=== PATIENT | female | born 1955 | race Caucasian/White ===

== ENCOUNTER → 2017-03-10 | Outpatient (CLI) | payer BC, OTHER ==
--- NOTE | 2017-03-11 13:38 | MM ---
Reason for exam: screening (asymptomatic). Last mammogram was performed 1 year ago. History: Patient is postmenopausal and had first child at age 30. Physical Findings: A clinical breast exam by your physician is recommended on an annual basis and results should be correlated with mammographic findings. MG 3D Screening Mammo W/Cad Bilateral CC and MLO view(s) were taken. XCCL view(s) were taken of the right breast. Prior study comparison: February 27, 2016, bilateral MG 3d screening mammo w/cad. January 24, 2015, bilateral MG screening mammo w CAD. The breast tissue is heterogeneously dense. This may lower the sensitivity of mammography. Benign calcifications. There is no discrete abnormality. No significant changes when compared with prior studies. ASSESSMENT: Benign, BI-RAD 2 RECOMMENDATION: Routine screening mammogram of both breasts in 1 year.
== END | disposition home or self-care (01) ==
LOC: RADMAMWWP 14:36
PROVIDERS: ATTEND Internal Medicine
DX: Z12.31 Encounter for screening mammogram for malignant neoplasm of breast (principal)
CPT/HCPCS: 77063; G0202

== ENCOUNTER → 2018-04-12 | Outpatient (CLI) | payer BC, OTHER ==
--- NOTE | 2018-04-14 09:40 | MM ---
Reason for exam: screening (asymptomatic). Last mammogram was performed 1 year and 1 month ago. History: Patient is postmenopausal and had first child at age 30. Physical Findings: A clinical breast exam by your physician is recommended on an annual basis and results should be correlated with mammographic findings. MG 3D Screening Mammo W/Cad Bilateral CC and MLO view(s) were taken. XCCL view(s) were taken of the right breast. Prior study comparison: March 10, 2017, bilateral MG 3d screening mammo w/cad. February 27, 2016, bilateral MG 3d screening mammo w/cad. The breast tissue is heterogeneously dense. This may lower the sensitivity of mammography. Benign appearing bilateral calcifications. No suspicious abnormality. No significant changes when compared with prior studies. ASSESSMENT: Benign, BI-RAD 2 RECOMMENDATION: Routine screening mammogram of both breasts in 1 year.
== END | disposition home or self-care (01) ==
LOC: RADMAMWWP 10:05
PROVIDERS: ATTEND Internal Medicine
DX: Z12.31 Encounter for screening mammogram for malignant neoplasm of breast (principal)
CPT/HCPCS: 77063; 77067

== ENCOUNTER → 2018-06-01 | Outpatient (CLI) | payer BC, OTHER ==
--- NOTE | 2018-06-01 10:18 | XR ---
Left foot HISTORY: Left foot pain 3 views of the left foot Degenerative changes are mild at the first metatarsophalangeal joint. There is soft tissue swelling p resent. Bone mineralization is somewhat reduced. Alignment is maintained. There is a lucency through the proximal aspect of the proximal phalanx of the fourth digit of the lef t foot compatible with nondisplaced fracture, correlate for tenderness. No dislocation is evident. Th ere is a plantar calcaneal spur. Arthropathy present at the intertarsal joints. IMPRESSION: Fourth digit fracture.
== END | disposition home or self-care (01) ==
LOC: RADXRMAIN 09:45
PROVIDERS: ATTEND Podiatrist Foot Surgery
DX: S92.345A Nondisplaced fracture of fourth metatarsal bone, left foot, initial encounter for closed fracture (principal)

== ENCOUNTER 2018-08-16 06:55 | Emergency (ER) | payer BC, OTHER ==
[2018-08-16 07:03] VITALS: TEMP 98.6
[2018-08-16] MEDS ORDERED: SODIUM CHLORIDE 0.9% 1,000 ML IV STA (07:15)
--- NOTE | 2018-08-16 07:19 | ED ---
General Adult HPI - General Chief complaint: Recheck/Abnormal Lab/Rx Stated complaint: Rapid Heart Rate Time Seen by Provider: 08/16/18 07:05 Source: patient, RN notes reviewed Mode of arrival: ambulatory Limitations: no limitations - History of Present Illness Initial comments: This a 63-year-old female sent emergency Department chief complaint of feeling of her heart racing. Patient states that around 9:00 PM last night she noticed that she felt like her heart was racing really fast and she noticed it was skipping beats. She states that she never checked her heart rate. Patient does admit that she is being treated for a breast infection with Ceftin which was prescribed by PCP. Patient also has noticed since Wednesday that she has some dysuria and is concerned about urinary tract infection. Patient developed a rash which was improving with [place]. She is a known diabetic. Patient states she took her blood pressure medication which includes metoprolol this morning. Patient reports no fever, chills, night sweats. Patient states that she does see her primary care physician every 3 months has had no prior thyroid disease. Patient states proximal to 20 years ago she came in for some chest discomfort and which she had a complete workup and was found have no acute findings other than diagnosed with anxiety. Patient states that she has no current chest pain or shortness of breath. She states that her heart rate does not feel like it skipping a beat at this time. Denies any nausea, vomiting, diarrhea constipation no flank pain no back pain. Patient states that she tried taking Ativan last night and did not help her heart rate. - Related Data Home Medications Medication Instructions Recorded Confirmed Allopurinol [Zyloprim] 300 mg PO DAILY 01/04/15 01/08/15 Aspirin 81 mg PO DAILY 01/04/15 01/08/15 Furosemide [Lasix] 20 mg PO DAILY 01/04/15 01/08/15 LORazepam [Ativan] 1 mg PO BID PRN 01/04/15 01/08/15 Metoprolol Succinate (ER) [Toprol 25 mg PO HS 01/04/15 01/08/15 Xl] Metoprolol Succinate [Toprol XL] 50 mg PO DAILY 01/04/15 01/08/15 Potassium Chloride [Klor-Con 10] 10 meq PO DAILY 01/04/15 01/08/15 Simvastatin [Zocor] 20 mg PO HS 01/04/15 01/08/15 amLODIPine BESYLATE/BENAZEPRIL 1 each PO DAILY 01/04/15 01/08/15 [Lotrel 5-20 mg Capsule] metFORMIN HCL [Glucophage] 500 mg PO BID 01/04/15 01/08/15 Previous Rx's Medication Instructions Recorded Hydrocodone/Acetaminophen [[place] 1 each PO Q6HR PRN #40 tab 01/08/15 5-325] Fluconazole [Diflucan] 150 mg PO ONCE #2 tab 08/16/18 Nystatin 100,000Unit/gm Cream 1 applic TOPICAL BID #30 gram 08/16/18 [Mycostatin Cream] Allergies Allergy/AdvReac Type Severity Reaction Status Date / Time No Known Allergies Allergy Verified 08/16/18 07:03 Review of Systems ROS Statement: Those systems with pertinent positive or pertinent negative responses have been documented in the HPI. ROS Other: All systems not noted in ROS Statement are negative. Past Medical History Past Medical History: Diabetes Mellitus, Hyperlipidemia, Hypertension, Osteoarthritis (OA) Additional Past Medical History / Comment(s): hx. kidney stones, resolving cold sx., hx. gout History of Any Multi-Drug Resistant Organisms: None Reported Past Surgical History: Section, Hysterectomy, Orthopedic Surgery Additional Past Surgical History / Comment(s): lithotripsy Past Anesthesia/Blood Transfusion Reactions: Postoperative Nausea & Vomiting ( PONV) Past Psychological History: Anxiety Smoking Status: Former smoker Past Alcohol Use History: None Reported Past Drug Use History: None Reported - Past Family History Mother Family Medical History: Cancer General Exam Limitations: no limitations General appearance: alert, in no apparent distress Head exam: Present: atraumatic, normocephalic, normal inspection ENT exam: Present: normal exam, normal oropharynx, mucous membranes moist Neck exam: Present: normal inspection, full ROM. Absent: tenderness, meningismus, lymphadenopathy Respiratory exam: Present: normal lung sounds bilaterally. Absent: respiratory distress, wheezes, rales, rhonchi, stridor Cardiovascular Exam: Present: normal rhythm, tachycardia (102), normal heart sounds. Absent: regular rate, systolic murmur, diastolic murmur, rubs, gallop, clicks GI/Abdominal exam: Present: soft, normal bowel sounds. Absent: distended, tenderness, guarding, rebound, rigid Back exam: Absent: CVA tenderness (R), CVA tenderness (L) Neurological exam: Present: alert, oriented X3, CN II-XII intact Skin exam: Present: warm, dry, intact, normal color. Absent: rash Course Vital Signs 08/16/18 08/16/18 08/16/18 06:58 07:38 07:40 Temperature 98.6 F Pulse Rate 102 H 80 Respiratory 18 33 H 7 L Rate Blood Pressure 170/80 O2 Sat by Pulse 98 93 L Oximetry 08/16/18 08/16/18 08/16/18 07:50 08:00 08:10 Temperature Pulse Rate 76 76 73 Respiratory 17 27 H 16 Rate Blood Pressure 134/69 134/69 120/80 O2 Sat by Pulse 93 L 94 L 94 L Oximetry 08/16/18 08/16/18 08/16/18 08:20 08:30 08:40 Temperature Pulse Rate 75 71 74 Respiratory 14 17 12 Rate Blood Pressure 120/80 120/80 117/76 O2 Sat by Pulse 96 94 L 94 L Oximetry 08/16/18 08/16/18 08:50 09:00 Temperature Pulse Rate 75 Respiratory 15 Rate Blood Pressure 117/76 117/76 O2 Sat by Pulse 95 Oximetry Medical Decision Making - Medical Decision Making 63-year-old female presents emergency department for palpitations. Patient had lab work, EKG, chest x-ray and urinalysis which is essentially unremarkable she does have mild elevated renal function related to her diabetes and mild dehydration. Patient was hydrated with a liter fluid she does feel improved. Patient states she has no current symptoms denies any chest pain or shortness of breath. Patient does have a yeast infection will be given Diflucan, nystatin cream. Patient will follow-up with her PCP and return for any worsening symptoms. We discussed possibility of having a Holter monitor or event monitor if symptoms return or persist. Return parameters were discussed. - Lab Data Result diagrams: 08/16/18 07:45 08/16/18 07:45 Lab Results 08/16/18 08/16/18 08/16/18 Range/Units 07:45 07:45 07:45 WBC 10.0 (3.8-10.6) k/uL RBC 3.93 (3.80-5.40) m/uL Hgb 11.8 (11.4-16.0) gm/dL Hct 36.2 (34.0-46.0) % MCV 92.2 D (80.0-100.0) fL MCH 29.9 (25.0-35.0) pg MCHC 32.5 (31.0-37.0) g/dL RDW 14.3 (11.5-15.5) % Plt Count 303 (150-450) k/uL Neutrophils % 79 % Lymphocytes % 12 % Monocytes % 5 % Eosinophils % 3 % Basophils % 0 % Neutrophils # 7.9 H (1.3-7.7) k/uL Lymphocytes # 1.2 (1.0-4.8) k/uL Monocytes # 0.5 (0-1.0) k/uL Eosinophils # 0.3 (0-0.7) k/uL Basophils # 0.0 (0-0.2) k/uL PT (9.0-12.0) sec INR (<1.2) APTT (22.0-30.0) sec Sodium 138 (137-145) mmol/L Potassium 4.6 (3.5-5.1) mmol/L Chloride 108 H (98-107) mmol/L Carbon Dioxide 21 L (22-30) mmol/L Anion Gap 9 mmol/L BUN 32 H (7-17) mg/dL Creatinine 1.22 H (0.52-1.04) mg/dL Est GFR (CKD-EPI)AfAm 54 (>60 ml/min/1.73 sqM) Est GFR (CKD-EPI)NonAf 47 (>60 ml/min/1.73 sqM) Glucose 171 H (74-99) mg/dL Calcium 10.0 (8.4-10.2) mg/dL Magnesium 1.7 (1.6-2.3) mg/dL Total Bilirubin 0.3 (0.2-1.3) mg/dL AST 19 (14-36) U/L ALT 29 (9-52) U/L Alkaline Phosphatase 88 (38-126) U/L Total Creatine Kinase 59 (30-135) U/L CK-MB (CK-2) 0.7 (0.0-2.4) ng/mL CK-MB (CK-2) Rel Index 1.2 Troponin I <0.012 (0.000-0.034) ng/mL Total Protein 6.7 (6.3-8.2) g/dL Albumin 3.8 (3.5-5.0) g/dL TSH 1.910 (0.465-4.680) mIU/L Urine Color Urine Appearance (Clear) Urine pH (5.0-8.0) Ur Specific [place] (1.001-1.035) Urine Protein (Negative) Urine Glucose (UA) (Negative) Urine Ketones (Negative) Urine Blood (Negative) Urine Nitrite (Negative) Urine Bilirubin (Negative) Urine Urobilinogen (<2.0) mg/dL Ur Leukocyte Esterase (Negative) Urine RBC (0-5) /hpf Urine WBC (0-5) /hpf Ur Squamous Epith Cells (0-4) /hpf Urine Bacteria (None) /hpf Hyaline Casts (0-2) /lpf Urine Mucus (None) /hpf 08/16/18 08/16/18 Range/Units 07:45 07:45 WBC (3.8-10.6) k/uL RBC (3.80-5.40) m/uL Hgb (11.4-16.0) gm/dL Hct (34.0-46.0) % MCV (80.0-100.0) fL MCH (25.0-35.0) pg MCHC (31.0-37.0) g/dL RDW (11.5-15.5) % Plt Count (150-450) k/uL Neutrophils % % Lymphocytes % % Monocytes % % Eosinophils % % Basophils % % Neutrophils # (1.3-7.7) k/uL Lymphocytes # (1.0-4.8) k/uL Monocytes # (0-1.0) k/uL Eosinophils # (0-0.7) k/uL Basophils # (0-0.2) k/uL PT 9.7 (9.0-12.0) sec INR 1.0 (<1.2) APTT 23.1 (22.0-30.0) sec Sodium (137-145) mmol/L Potassium (3.5-5.1) mmol/L Chloride (98-107) mmol/L Carbon Dioxide (22-30) mmol/L Anion Gap mmol/L BUN (7-17) mg/dL Creatinine (0.52-1.04) mg/dL Est GFR (CKD-EPI)AfAm (>60 ml/min/1.73 sqM) Est GFR (CKD-EPI)NonAf (>60 ml/min/1.73 sqM) Glucose (74-99) mg/dL Calcium (8.4-10.2) mg/dL Magnesium (1.6-2.3) mg/dL Total Bilirubin (0.2-1.3) mg/dL AST (14-36) U/L ALT (9-52) U/L Alkaline Phosphatase (38-126) U/L Total Creatine Kinase (30-135) U/L CK-MB (CK-2) (0.0-2.4) ng/mL CK-MB (CK-2) Rel Index Troponin I (0.000-0.034) ng/mL Total Protein (6.3-8.2) g/dL Albumin (3.5-5.0) g/dL TSH (0.465-4.680) mIU/L Urine Color Light Yellow Urine Appearance Cloudy H (Clear) Urine pH 5.0 (5.0-8.0) Ur Specific [place] 1.008 (1.001-1.035) Urine Protein Trace H (Negative) Urine Glucose (UA) Negative (Negative) Urine Ketones Negative (Negative) Urine Blood Negative (Negative) Urine Nitrite Negative (Negative) Urine Bilirubin Negative (Negative) Urine Urobilinogen <2.0 (<2.0) mg/dL Ur Leukocyte Esterase Small H (Negative) Urine RBC 3 (0-5) /hpf Urine WBC 5 (0-5) /hpf Ur Squamous Epith Cells 6 H (0-4) /hpf Urine Bacteria Rare H (None) /hpf Hyaline Casts 4 H (0-2) /lpf Urine Mucus Rare H (None) /hpf Disposition Clinical Impression: Palpitations, Skin yeast infection, Dehydration Disposition: HOME SELF-CARE Condition: Stable Instructions: Heart Palpitations (ED) Additional Instructions: Please return to the Emergency Department if symptoms worsen or any other concerns. Prescriptions: Fluconazole [Diflucan] 150 mg PO ONCE #2 tab Nystatin 100,000Unit/gm Cream [Mycostatin Cream] 1 applic TOPICAL BID #30 gram Is patient prescribed a controlled substance at d/c from ED?: No Referrals: Dorie Rivera MD [Primary Care Provider] - 1-2 days Time of Disposition: :19
[2018-08-16 08:12] LABS: Basophils % (A) 0 %; Eosinophils # (A) 0.3 k/uL (0-0.7); Eosinophils % (A) 3 %; HCT 36.2 % (34.0-46.0); HGB 11.8 gm/dL (11.4-16.0); Lymphocytes # (A) 1.2 k/uL (1.0-4.8); Lymphocytes % (A) 12 %; MCH 29.9 pg (25.0-35.0); MCHC 32.5 g/dL (31.0-37.0); Mean Platelet Volume 7.4; Monocytes # (A) 0.5 k/uL (0-1.0); Monocytes % (A) 5 %; Neutrophils # (A) 7.9 k/uL (1.3-7.7); Neutrophils % (A) 79 %; Platelet Count 303 k/uL (150-450); RBC 3.93 m/uL (3.80-5.40); RDW 14.3 % (11.5-15.5)
[2018-08-16 08:17] LABS: Appearance,Urine Cloudy (Clear); Bacteria,Urine Rare /hpf; Bilirubin,Urine Negative (Negative); Blood,Urine Negative (Negative); Color,Urine Light Yellow; Glucose,Urine (UA) Negative (Negative); Hyaline Casts,Urine 4 /lpf (0-2); Ketones,Urine Negative (Negative); Leukocyte Esterase,Urine Small (Negative); MCV 92.2 fL (80.0-100.0); Mucus,Urine Rare /hpf; Nitrite,Urine Negative (Negative); Protein,Urine Trace (Negative); RBC,Urine 3 /hpf (0-5); Specific Gravity,Urine 1.008 (1.001-1.035); Squamous Epithelial Cell,Urine 6 /hpf (0-4); Urobilinogen,Urine <2.0 mg/dL (<2.0); WBC,Urine 5 /hpf (0-5)
--- NOTE | 2018-08-16 08:21 | XR ---
EXAMINATION TYPE: XR chest 2V DATE OF EXAM: 08/16/2018 COMPARISON: None INDICATION: Rapid heart rate TECHNIQUE: Frontal and lateral views of the chest are obtained. FINDINGS: The heart size is normal. The pulmonary vasculature is normal. The lungs are clear. IMPRESSION: 1. No acute pulmonary process.
[2018-08-16 08:24] LABS: Albumin 3.8 g/dL (3.5-5.0); Magnesium 1.7 mg/dL (1.6-2.3); Partial Thromboplastin Time 23.1 sec (22.0-30.0); Potassium 4.6 mmol/L (3.5-5.1); Prothrombin Time 9.7 sec (9.0-12.0); Total Bilirubin 0.3 mg/dL (0.2-1.3); Total Protein 6.7 g/dL (6.3-8.2)
[2018-08-16 08:29] LABS: Creatine Kinase 59 U/L (30-135)
[2018-08-16 08:42] LABS: Creatine Kinase MB 0.7 ng/mL (0.0-2.4); Troponin I <0.012 ng/mL (0.000-0.034)
[2018-08-16 09:52] VITALS: BP 112/72; PULSE 71; RESP 18
== END 2018-08-16 09:50 | disposition home or self-care (01) ==
LOC: EC 06:55
DX: R00.2 Palpitations (principal); B37.2 Candidiasis of skin and nail; E86.0 Dehydration; R30.0 Dysuria; E11.9 Type 2 diabetes mellitus without complications; E78.5 Hyperlipidemia, unspecified; I10 Essential (primary) hypertension; M19.90 Unspecified osteoarthritis, unspecified site; M10.9 Gout, unspecified; F41.9 Anxiety disorder, unspecified; Z87.442 Personal history of urinary calculi; Z87.891 Personal history of nicotine dependence; Z79.82 Long term (current) use of aspirin; Z79.84 Long term (current) use of oral hypoglycemic drugs; Z79.899 Other long term (current) drug therapy; Z90.710 Acquired absence of both cervix and uterus
CPT/HCPCS: 36415; 71046; 80053; 81001; 82550; 82553; 83735; 84443; 84484; 85025; 85610; 85730; 93005; 96360; 96361; 99285

== ENCOUNTER → 2019-04-06 | Outpatient (CLI) | payer MEDICARE, OTHER ==
--- NOTE | 2019-04-06 09:53 | USB ---
Reason for exam: clinical finding. History: Patient is postmenopausal and had first child at age 30. Physical Findings: Nurse Summary: 3cm bruise with BB 1cm (nurse kp). US Breast RT Right complete breast ultrasound includes all four quadrants, the retroareolar region and axilla. Finding demonstrates a 3 x 3 x 3mm lesion at 2 o'clock, appears anechoic, however, ill defined boarders, reassess at time of biopsy and a 6 x 5 x 11mm cystic lesion at 10 o'clock BB with hyperechoic rim and palpable. These results were verbally communicated with the patient and result sheet given to the patient on 04/06/19. ASSESSMENT: Suspicious, BI-RAD 4 RECOMMENDATION: Ultrasound core biopsy of the right breast. (x 2 site) Called Dr. Rivera with mammographic findings and has scheduled an appointment for the patient for 05/31/19 at 4:[address] Dyson. Biopsy scheduled for 05/02/19 at 2:00. PRELIMINARY REPORT CALLED AND FAXED TO DR. DYSON ON 04/06/19.
== END | disposition home or self-care (01) ==
LOC: RADUSWWP 08:06
PROVIDERS: ATTEND Internal Medicine
DX: S20 Superficial injury of thorax (principal)

== ENCOUNTER → 2019-04-21 | Outpatient (CLI) | payer MEDICARE, OTHER ==
--- NOTE | 2019-04-21 11:42 | MM ---
Reason for exam: additional evaluation requested from prior study. Last mammogram was performed 1 year ago. History: Patient is postmenopausal and had first child at age 30. Physical Findings: Nurse did not find any significant physical abnormalities on exam. MG 3D Diag Mammo W/Cad DEVIN Bilateral CC and MLO view(s) were taken. Prior study comparison: April 12, 2018, bilateral MG 3d screening mammo w/cad. March 10, 2017, bilateral MG 3d screening mammo w/cad. There are scattered fibroglandular densities. There is no discrete abnormality including area of concern. These results were verbally communicated with the patient and result sheet given to the patient on 04/21/19. ASSESSMENT: Benign, BI-RAD 2 RECOMMENDATION: Ultrasound core biopsy of the right breast. (per ultrasound of 04/06/19, biopsy scheduled for 05/02/19)
== END | disposition home or self-care (01) ==
LOC: RADMAMWWP 10:43
PROVIDERS: ATTEND Internal Medicine
DX: R92.8 Other abnormal and inconclusive findings on diagnostic imaging of breast (principal)
CPT/HCPCS: 77066; G0279; 77062

== ENCOUNTER → 2019-05-02 | Day surgery (SDC) | payer MEDICARE, OTHER ==
[2019-05-02 13:15] VITALS: BP 128/76; PULSE 78; RESP 16; TEMP 97.8; BMI 41.1
--- NOTE | 2019-05-02 18:56 | USB ---
EXAMINATION TYPE: US discontinued breast bx RT DATE OF EXAM: 05/02/2019 COMPARISON: 04/06/2019 HISTORY: 64-year-old female referred for tube site ultrasound core needle biopsy. TECHNIQUE: Initial ultrasound evaluation of the intended right breast biopsy targets, 10:00 and 2:00 FINDINGS: At the intended 10:00 biopsy target, 6 cm from the nipple, there is residual 7 mm area of echogenicit y at the previous site of larger 1.1 cm mixed echogenic and cystic lesion. Of note, this is previousl y a palpable area that demonstrated overlying bruising. Given decreasing size and echogenicity, invol uting hematoma is suspected. Three-month follow-up recommended. At the intended 2:00 zone a biopsy target, there appears to be a slightly irregular cyst measuring 5 x 3 x 3 mm. Given overall cystic appearance, biopsy is deferred at this time in the area of the reass essed in 3 months. A third lesion now incidentally seen located at 10:00, zone A, is an 8 x 8 x 4 mm complex cyst versus cyst cluster. This can also be reassessed at follow-up. Cyst cluster is favored. Findings and impression are discussed with the patient. IMPRESSION: 1. BI-RADS 3 - PROBABLY BENIGN RECOMMENDATION: 1. Three-month follow-up right breast ultrasound for reassessment of the 3 above-mentioned lesions: - 10:00 CFN likely involuting hematoma, - 10:00 zone A likely cyst cluster, - and 2:00 zone A, slightly irregular cyst. 2. Patient should continue monthly self breast exam.
== END ==
LOC: RADUSWWP 12:57
PROVIDERS: ATTEND Surgery
DX: N63.11 Unspecified lump in the right breast, upper outer quadrant (principal); Z53.8 Procedure and treatment not carried out for other reasons

== ENCOUNTER → 2019-08-18 | Outpatient (CLI) | payer MEDICARE, OTHER ==
--- NOTE | 2019-08-21 08:43 | USB ---
Reason for exam: clinical finding. History: Patient is postmenopausal and had first child at age 30. US discontinued breast bx RT of the right breast, May 02, 2019. Physical Findings: Nurse did not find any significant physical abnormalities on exam. US Breast Limited RT Right limited breast ultrasound including focal area of concern, retroareolar and axilla demonstrates a 0.6 x 0.7 x 0.3cm cystic cluster at 10 o'clock (prior 0.8 x 0.4 x 0.8cm) and a 0.3 x 0.6 x 0.3cm cystic lesion at 2 o'clock (prior 0.3 x 0.3 x 0.3cm). These results were verbally communicated with the patient and result sheet given to the patient on 08/18/19. ASSESSMENT: Benign, BI-RAD 2 RECOMMENDATION: Routine screening mammogram of both breasts in 1 year.
== END | disposition home or self-care (01) ==
LOC: RADUSWWP 14:42
PROVIDERS: ATTEND Surgery
DX: R92.8 Other abnormal and inconclusive findings on diagnostic imaging of breast (principal)

== ENCOUNTER → 2019-11-10 | Outpatient (CLI) | payer MEDICARE, OTHER ==
--- NOTE | 2019-11-10 14:11 | US ---
EXAMINATION TYPE: US kidneys/renal and bladder DATE OF EXAM: 11/10/2019 COMPARISON: NONE CLINICAL HISTORY: Acute kidney injury N17.9. elevated BUN per patient; prior left renal stone EXAM MEASUREMENTS: Right Kidney: 13.7 x 7.6 x 6.4 cm Left Kidney: 14.1 x 6.7 x 5.1 cm Post Void Residual Volume: 0 mL Right Kidney: poor cortical medullary differentiation; multiple renal cysts with largest = 1.2 x 1.2 x 0.9cm Left Kidney: poor cortical medullary differentiation; multiple renal cysts with largest in superior p ole = 1.3 x 1.3 x 1.2cm Bladder: wnl Bilateral Jets seen: yes Normal Post Void Residual: yes, bladder fully emptied There is no evidence for hydronephrosis at this point in time. No nephrolithiasis is seen. The urina ry bladder is anechoic. Bilateral ureteral jets are seen. IMPRESSION: Sonographic sequela of medical renal disease with diminished cortical medullary differentiation bilat erally and numerous small renal cysts.
== END ==
LOC: RADUSWWP 13:15
PROVIDERS: ATTEND Internal Medicine
DX: N28.89 Other specified disorders of kidney and ureter (principal)
CPT/HCPCS: 76770

== ENCOUNTER → 2020-07-08 | Outpatient (CLI) | payer MEDICARE, OTHER ==
--- NOTE | 2020-07-09 13:56 | MM ---
Reason for exam: screening (asymptomatic). Last mammogram was performed 1 year and 3 months ago. History: Patient is postmenopausal and had first child at age 30. US discontinued breast bx RT of the right breast, May 02, 2019. Physical Findings: A clinical breast exam by your physician is recommended on an annual basis and results should be correlated with mammographic findings. MG 3D Screening Mammo W/Cad Bilateral CC and MLO view(s) were taken. Prior study comparison: April 21, 2019, bilateral MG 3d diag mammo w/cad DEVIN. April 12, 2018, bilateral MG 3d screening mammo w/cad. There is chronic nodularity bilaterally. No significant changes when compared with prior studies. ASSESSMENT: Benign, BI-RAD 2 RECOMMENDATION: Routine screening mammogram of both breasts in 1 year.
== END | disposition home or self-care (01) ==
LOC: RADMAMWWP 13:04
PROVIDERS: ATTEND Internal Medicine
DX: Z12.31 Encounter for screening mammogram for malignant neoplasm of breast (principal)
CPT/HCPCS: 77063; 77067

== ENCOUNTER → 2020-08-30 | Outpatient (CLI) | payer MEDICARE, OTHER ==
--- NOTE | 2020-08-30 15:03 | US ---
EXAMINATION TYPE: US kidneys/renal and bladder DATE OF EXAM: 08/30/2020 COMPARISON: NONE CLINICAL HISTORY: Q61.2 Polycystic kidney, adult type. EXAM MEASUREMENTS: Right Kidney: 12.6 x 5.2 x 5.4cm Left Kidney: 12.7x 4.6 x 5.6 cm Right Kidney: poor cortical medullary differentiation; multiple renal cysts with largest = 1.3 x 1.0 x 0.9cm Left Kidney: poor cortical medullary differentiation; multiple renal cysts with largest measuring 1.4 x 1.6 x 1.5cm Bladder: wnl IMPRESSION: 1. Changes compatible some chronic renal failure present bilaterally. 2. Multiple small cortical renal cysts. 3. Findings are similar to the one 11/09/2019 comparison
== END | disposition home or self-care (01) ==
LOC: RADUSWWP 12:50
PROVIDERS: ATTEND Internal Medicine Nephrology
DX: N18.9 Chronic kidney disease, unspecified (principal); Q61.2 Polycystic kidney, adult type
CPT/HCPCS: 76770

== ENCOUNTER 2020-10-01 08:56 | Day surgery (SDC) | payer MEDICARE, OTHER ==
--- NOTE | 2020-09-30 09:01 | HP ---
HISTORY AND PHYSICAL CHIEF COMPLAINT: Left shoulder pain and stiffness. HISTORY OF PRESENT ILLNESS: Patient is a 65-year-old, right-hand dominant, retired female who presents with progressive left shoulder pain and stiffness for the past several months. She is having pain with overhead use. She has noticed limited range of motion. She is continuing with therapy without any real improvement. She has also been doing home exercise. PAST MEDICAL HISTORY: Significant for type 2 diabetes, hypertension, and polycystic kidney disease. PAST SURGICAL HISTORY: Significant for section and hysterectomy. CURRENT MEDICATIONS: Allopurinol, amlodipine, aspirin, Lasix, K-Deisy, lorazepam, simvastatin. She denies drug allergies. FAMILY HISTORY: Significant for pulmonary disease. SOCIAL HISTORY: Negative for current tobacco or alcohol use. 16 POINT REVIEW OF SYSTEMS: Otherwise is reviewed and is noncontributory. PHYSICAL EXAMINATION: On examination, the patient is approximately 5 foot 5, 254 pounds of endomorphic habitus. HEENT: Exam is nonfocal. NECK: Supple. She is tender about the left shoulder anterior subacromial space. Active range of motion, forward elevation 95 degrees, external rotation, arms at side 0 degrees, internal rotation to L5. Passively, I am able to forward elevate her 95 degrees. Her distal neurovascular appears intact in the left upper extremity. IMPRESSION: 1. Left shoulder adhesive capsulitis-symptomatic. 2. Polycystic kidney disease. 3. Non-insulin dependent diabetes. RECOMMENDATIONS: I talked to the patient at length regarding her condition and treatment options. At this point, she is quite symptomatic and limited despite conservative measures. After thorough discussion, she opts to proceed with manipulation under anesthesia with subacromial cortisone injection. Risks and benefits were discussed at length in layman's terms. We will likely perform that as an outpatient procedure utilizing IV sedation. MMODL / IJN: [id number] /
[~2020-10-01 08:56] MED LIST: DEXAMETHASONE SOD PHOSPHATE 4 MG/ML 1 ML VIAL IV ONE; HYDROmorphone 0.5 MG/0.5 ML SYRINGE IVP PRN; LACTATED RINGERS 1,000 ML IV SCH; LIDOCAINE 1% (10MG/ML) FOR IV START INTRADERMA PRN; ONDANSETRON 4 MG/2 ML VIAL IVP ONE; Pre Op ABX Message 1 EACH MISC MISCELLANE ONE
[2020-10-01 09:34] VITALS: TEMP 96.8
[2020-10-01] MEDS ORDERED: MIDAZOLAM 2 MG/2 ML VIAL ONE (09:36)
[2020-10-01] MEDS ORDERED: fentaNYL (PF) 50 MCG/ML 2 ML AMP ONE (09:36)
[2020-10-01] MEDS ORDERED: PROPOFOL 10 MG/ML 20 ML VIAL IV ONE (09:36)
[2020-10-01 09:39] LABS: Glucose,Whole Blood 129 mg/dL (75-99)
--- NOTE | 2020-10-01 09:52 | P.OP ---
Date of Procedure: 10/01/20 Preoperative Diagnosis: Left shoulder adhesive capsulitis Postoperative Diagnosis: Same Procedure(s) Performed: Manipulation under anesthesia left shoulder with subacromial cortisone injection Anesthesia: MAC Surgeon: Bakari Starkey Estimated Blood Loss (ml): 0 Pathology: none sent Condition: stable Disposition: PACU Indications for Procedure: The patient's 65-year-old female who presents with progressive left shoulder pain and stiffness despite adequate conservative treatment. A discussion of the risks and benefits of manipulation under anesthesia with cortisone injection was made with patient he opted proceed. Risks of this procedure to include fracture, tendon rupture, possible recurrence and need for subsequent procedures was discussed. Informed consent was obtained. Operative Findings: As below Description of Procedure: The patient was brought to the recovery room, and after induction of IV sedation the left shoulder was then gently manipulated. First with the arm at side obtaining full external rotation. Moderate adhesions were encountered. Secondly I obtained full forward elevation again encountering moderate adhesions. I felt there was adequate release at this point. The subacromial space was then injected with 80 mg of methylprednisolone and 5 mL of quarter percent plain Marcaine after prepping the posterior shoulder with ChloraPrep. She was then monitored until fully awake. No complications were incurred. There was no blood loss.
[2020-10-01] MEDS ORDERED: HYDROmorphone 0.5 MG/0.5 ML SYRINGE IVP ONE ×4 (10:06→10:29)
[2020-10-01 10:08] VITALS: RESP 16
[2020-10-01] MEDS ORDERED: HYDROcodone/APAP 5-325MG 1 EACH TAB ONE (10:47)
[2020-10-01] MEDS ORDERED: HYDROcodone/APAP 5-325MG 1 EACH TAB PO ONE (10:48)
[2020-10-01 11:38] VITALS: BP 119/77; PULSE 64
== END 2020-10-01 11:45 | disposition home or self-care (01) ==
LOC: OR 08:56
PROVIDERS: ATTEND Orthopaedic Surgery
DX: M75.02 Adhesive capsulitis of left shoulder (principal); E11.9 Type 2 diabetes mellitus without complications; I10 Essential (primary) hypertension; Q61.3 Polycystic kidney, unspecified; E78.5 Hyperlipidemia, unspecified; M10.9 Gout, unspecified; M19.90 Unspecified osteoarthritis, unspecified site; F41.9 Anxiety disorder, unspecified; Z98.890 Other specified postprocedural states; Z90.710 Acquired absence of both cervix and uterus; Z79.899 Other long term (current) drug therapy; Z79.82 Long term (current) use of aspirin; Z87.891 Personal history of nicotine dependence; Z82.5 Family history of asthma and other chronic lower respiratory diseases
CPT/HCPCS: 23700; J2250; J1100; J2405; J3010; J2704; J1170

== ENCOUNTER → 2020-10-15 | Outpatient (CLI) | payer MEDICARE, OTHER ==
[2020-10-15 11:52] LABS: HCT 39.6 % (34.0-46.0); HGB 12.5 gm/dL (11.4-16.0); MCH 30.6 pg (25.0-35.0); MCHC 31.5 g/dL (31.0-37.0); MCV 97.2 fL (80.0-100.0); Platelet Count 258 k/uL (150-450); RBC 4.07 m/uL (3.80-5.40); RDW 13.9 % (11.5-15.5); WBC 12.3 k/uL (3.8-10.6)
[2020-10-15 12:31] LABS: Appearance,Urine Clear (Clear); Bilirubin,Urine Negative (Negative); Blood,Urine Negative (Negative); Color,Urine Light Yellow; Glucose,Urine (UA) Negative (Negative); Ketones,Urine Negative (Negative); Leukocyte Esterase,Urine Negative (Negative); Nitrite,Urine Negative (Negative); PH, Urine 5.5 (5.0-8.0); Protein,Urine Negative (Negative); Specific Gravity,Urine 1.007 (1.001-1.035); Urobilinogen,Urine <2.0 mg/dL (<2.0)
[2020-10-15 22:33] LABS: % Iron Saturation 31.72 (12.00-45.00); African American GFR (CKD) 38.5 (60.0-200.0); Albumin 4.3 g/dL (3.80-4.90); Albumin/Globulin Ratio 1.95 (1.60-3.17); Anion Gap 6.9 mmol/L (4.00-12.00); BUN/Creat Ratio 23.13 Ratio (12.00-20.00); Carbon Dioxide 29.1 mmol/L (21.6-31.8); Globulin 2.2 g/dL (1.6-3.3); Magnesium 2.1 mg/dL (1.5-2.4); Non-African American GFR(CKD) 33.2 (60.0-200.0); Phosphorus 3.8 mg/dL (2.4-5.1); Potassium 4.9 mmol/L (3.5-5.5); Total Bilirubin 0.5 mg/dL (0.2-1.2); Total Protein 6.5 g/dL (6.2-8.2); Uric Acid 5.3 mg/dL (2.9-7.7)
== END | disposition home or self-care (01) ==
LOC: LABWHC1 10:56
PROVIDERS: ATTEND Nurse Practitioner Family
DX: E55.9 Vitamin D deficiency, unspecified (principal); D64.9 Anemia, unspecified; N39.0 Urinary tract infection, site not specified; N25.81 Secondary hyperparathyroidism of renal origin; M10.9 Gout, unspecified; Q61.2 Polycystic kidney, adult type
CPT/HCPCS: 36415; 80053; 81003; 82306; 82728; 83540; 83550; 83735; 83970; 84100; 84550; 85027

== ENCOUNTER → 2021-02-20 | Outpatient (CLI) | payer MEDICARE, OTHER ==
[2021-02-20 11:29] LABS: Appearance,Urine Clear (Clear); Bilirubin,Urine Negative (Negative); Blood,Urine Negative (Negative); Color,Urine Colorless; Glucose,Urine (UA) Negative (Negative); Ketones,Urine Negative (Negative); Leukocyte Esterase,Urine Negative (Negative); Nitrite,Urine Negative (Negative); Protein,Urine Negative (Negative); Specific Gravity,Urine 1.006 (1.001-1.035); Urobilinogen,Urine <2.0 mg/dL (<2.0)
[2021-02-20 14:58] LABS: Basophils # (A) 0.05 X 10*3/uL (0.00-0.10); Basophils % (A) 0.5 %; Eosinophils # (A) 0.32 X 10*3/uL (0.04-0.35); Eosinophils % (A) 3.2 %; HCT 37.1 % (37.2-46.3); HGB 11.7 g/dL (12.0-15.0); Lymphocytes # (A) 1.41 X 10*3/uL (0.90-5.00); Lymphocytes % (A) 14.1 %; MCHC 31.5 g/dL (32.0-37.0); MCV 98.4 fL (80.0-97.0); Mean Platelet Volume 11.6 fL (9.5-12.2); Monocytes # (A) 0.69 X 10*3/uL (0.20-1.00); Monocytes % (A) 6.9 %; Neutrophils # (A) 7.47 X 10*3/uL (1.80-7.70); Neutrophils % (A) 74.9 %; Platelet Count 299 X 10*3/uL (140-440); RBC 3.77 X 10*6/uL (4.10-5.20); RDW 13.3 % (11.5-14.5); WBC 9.98 X 10*3/uL (4.50-10.00)
[2021-02-20 19:44] LABS: % Iron Saturation 22.71 (12.00-45.00); African American GFR (CKD) 45.3 (60.0-200.0); Albumin 4.2 g/dL (3.80-4.90); Anion Gap 10.7 mmol/L (4.00-12.00); Calcium 9.3 mg/dL (8.7-10.3); Carbon Dioxide 23.3 mmol/L (21.6-31.8); Globulin 2.1 g/dL (1.6-3.3); Magnesium 1.8 mg/dL (1.5-2.4); Non-African American GFR(CKD) 39.1 (60.0-200.0); Phosphorus 3.5 mg/dL (2.4-5.1); Potassium 4.8 mmol/L (3.5-5.5); Total Bilirubin 0.4 mg/dL (0.2-1.2); Total Protein 6.3 g/dL (6.2-8.2); Uric Acid 5.5 mg/dL (2.9-7.7)
[2021-02-20 20:23] LABS: Ferritin 378.7 ng/mL (10.0-291.0)
== END | disposition home or self-care (01) ==
LOC: LABWHC1 09:07
PROVIDERS: ATTEND Internal Medicine
DX: Q61.2 Polycystic kidney, adult type (principal); M10.9 Gout, unspecified; E55.9 Vitamin D deficiency, unspecified; N25.81 Secondary hyperparathyroidism of renal origin; N39.0 Urinary tract infection, site not specified; D64.9 Anemia, unspecified
CPT/HCPCS: 36415; 80053; 81003; 82306; 82728; 83540; 83550; 83735; 83970; 84100; 84550; 85025

== ENCOUNTER → 2021-07-09 | Outpatient (CLI) | payer MEDICARE, OTHER ==
--- NOTE | 2021-07-14 10:01 | MM ---
Reason for exam: screening (asymptomatic). Last mammogram was performed 1 year ago. History: Patient is postmenopausal and had first child at age 30. US discontinued breast bx RT of the right breast, May 02, 2019. Physical Findings: A clinical breast exam by your physician is recommended on an annual basis and results should be correlated with mammographic findings. MG 3D Screening Mammo W/Cad Bilateral CC and MLO view(s) were taken. Prior study comparison: July 08, 2020, bilateral MG 3d screening mammo w/cad. April 21, 2019, bilateral MG 3d diag mammo w/cad DEVIN. March 10, 2017, bilateral MG 3d screening mammo w/cad. There are scattered fibroglandular densities. There is chronic nodularity bilaterally. No significant changes when compared with prior studies. ASSESSMENT: Benign, BI-RAD 2 RECOMMENDATION: Routine screening mammogram of both breasts in 1 year.
== END | disposition home or self-care (01) ==
LOC: RADMAMWWP 12:23
PROVIDERS: ATTEND Internal Medicine
DX: Z12.31 Encounter for screening mammogram for malignant neoplasm of breast (principal); Z78.0 Asymptomatic menopausal state
CPT/HCPCS: 77063; 77067

== ENCOUNTER → 2021-08-05 | Outpatient (CLI) | payer MEDICARE, OTHER ==
[2021-08-05 10:27] LABS: Appearance,Urine Cloudy (Clear); Bilirubin,Urine Negative (Negative); Blood,Urine Negative (Negative); Color,Urine Light Yellow; Glucose,Urine (UA) Negative (Negative); Ketones,Urine Negative (Negative); Leukocyte Esterase,Urine Negative (Negative); Mucus,Urine Rare /hpf; Nitrite,Urine Negative (Negative); Protein,Urine Negative (Negative); RBC,Urine <1 /hpf (0-5); Specific Gravity,Urine 1.011 (1.001-1.035); Squamous Epithelial Cell,Urine 3 /hpf (0-4); Urobilinogen,Urine <2.0 mg/dL (<2.0); WBC,Urine 1 /hpf (0-5)
[2021-08-05 14:48] LABS: Basophils # (A) 0.05 X 10*3/uL (0.00-0.10); Basophils % (A) 0.4 %; Eosinophils # (A) 0.27 X 10*3/uL (0.04-0.35); Eosinophils % (A) 2.4 %; HCT 36.1 % (37.2-46.3); HGB 11.2 g/dL (12.0-15.0); Lymphocytes # (A) 1.37 X 10*3/uL (0.90-5.00); Lymphocytes % (A) 12.1 %; MCH 30.6 pg (27.0-32.0); MCV 98.6 fL (80.0-97.0); Mean Platelet Volume 11.7 fL (9.5-12.2); Monocytes # (A) 0.71 X 10*3/uL (0.20-1.00); Monocytes % (A) 6.3 %; Neutrophils # (A) 8.87 X 10*3/uL (1.80-7.70); Neutrophils % (A) 78.4 %; Platelet Count 239 X 10*3/uL (140-440); RBC 3.66 X 10*6/uL (4.10-5.20); RDW 13.8 % (11.5-14.5); WBC 11.32 X 10*3/uL (4.50-10.00)
[2021-08-05 16:06] LABS: % Iron Saturation 14.41 (12.00-45.00); African American GFR (CKD) 49.2 (60.0-200.0); Albumin 4.1 g/dL (3.8-4.9); Albumin/Globulin Ratio 1.86 (1.60-3.17); Anion Gap 11.7 mmol/L (4.00-12.00); BUN/Creat Ratio 19.85 Ratio (12.00-20.00); Blood Urea Nitrogen 25.8 mg/dL (9.0-27.0); Calcium 9.6 mg/dL (8.7-10.3); Carbon Dioxide 19.3 mmol/L (21.6-31.8); Globulin 2.2 g/dL (1.6-3.3); Magnesium 1.7 mg/dL (1.5-2.4); Non-African American GFR(CKD) 42.4 (60.0-200.0); Phosphorus 3.2 mg/dL (2.4-5.1); Potassium 4.3 mmol/L (3.5-5.5); Total Bilirubin 0.3 mg/dL (0.30-1.20); Total Protein 6.3 g/dL (6.2-8.2); Uric Acid 5.7 mg/dL (2.9-7.7)
== END | disposition home or self-care (01) ==
LOC: LABWHC1 08:35
PROVIDERS: ATTEND Internal Medicine
DX: Q61.2 Polycystic kidney, adult type (principal); D64.9 Anemia, unspecified; N39.0 Urinary tract infection, site not specified; M10.9 Gout, unspecified; E55.9 Vitamin D deficiency, unspecified; N25.81 Secondary hyperparathyroidism of renal origin; R80.9 Proteinuria, unspecified
CPT/HCPCS: 36415; 80053; 81001; 82043; 82306; 82570; 82728; 83540; 83550; 83735; 83970; 84100; 84550; 85025

== ENCOUNTER → 2021-09-08 | Outpatient (CLI) | payer MEDICARE, OTHER ==
[2021-09-08 15:04] LABS: African American GFR (CKD) 34.1 (60.0-200.0); Anion Gap 11.9 mmol/L (10.00-18.00); BUN/Creat Ratio 21.42 Ratio (12.00-20.00); Blood Urea Nitrogen 37.7 mg/dL (9.0-27.0); Calcium 9.5 mg/dL (8.7-10.3); Carbon Dioxide 20.3 mmol/L (20.0-27.5); Magnesium 2.1 mg/dL (1.5-2.4); Non-African American GFR(CKD) 29.4 (60.0-200.0); Potassium 4.4 mmol/L (3.5-5.5)
== END | disposition home or self-care (01) ==
LOC: LABWHC1 10:50
PROVIDERS: ATTEND Internal Medicine
DX: N18.32 Chronic kidney disease, stage 3b (principal)
CPT/HCPCS: 36415; 80048; 83735

== ENCOUNTER → 2021-09-29 | Outpatient (CLI) | payer MEDICARE, OTHER ==
--- NOTE | 2021-09-29 11:03 | US ---
EXAMINATION TYPE: US kidneys/renal and bladder DATE OF EXAM: 09/29/2021 COMPARISON: Renal ultrasound August 30, 2020 CLINICAL HISTORY: N18.3 CHR KIDNEY DISEASE STAGE 3. Chronic kidney disease EXAM MEASUREMENTS: Right Kidney: 12.7 x 6.7 x 7.3 cm Left Kidney: 13.7 x 5.2 x 4.9 cm Right Kidney: Cortical thinning, multicystic with largest cyst mid= 1.5 x 1.1 x 1.5 cm Left Kidney: Cortical thinning, multicystic with largest cyst lower pole with septation= 2.3 x 1.5 x 2.0 cm Bladder: wnl Bilateral Jets seen: Yes Similar findings to previous US There is no evidence for hydronephrosis at this point in time. No nephrolithiasis is seen. Cortical thinning with increased cortical echogenicity bilaterally is redemonstrated. Scattered small simple a ppearing thin-walled cysts bilaterally. Findings consistent with chronic medical renal disease simila r to prior study.. The urinary bladder is not greatly distended. Bilateral ureteral jets are seen. IMPRESSION: Evidence of chronic medical renal disease redemonstrated. No hydronephrosis seen kendrick downey.
== END | disposition home or self-care (01) ==
LOC: RADUSWWP 09:32
PROVIDERS: ATTEND Internal Medicine
DX: N18.30 Chronic kidney disease, stage 3 unspecified (principal)
CPT/HCPCS: 76770

== ENCOUNTER → 2021-12-24 | Outpatient (CLI) | payer MEDICARE, OTHER ==
[2021-12-24 10:15] LABS: Appearance,Urine Cloudy (Clear); Bilirubin,Urine Negative (Negative); Blood,Urine Negative (Negative); Color,Urine Yellow; Glucose,Urine (UA) 3+ (Negative); Ketones,Urine Negative (Negative); Leukocyte Esterase,Urine Trace (Negative); Mucus,Urine Rare /hpf; Nitrite,Urine Negative (Negative); Protein,Urine Trace (Negative); RBC,Urine 1 /hpf (0-5); Specific Gravity,Urine 1.015 (1.001-1.035); Squamous Epithelial Cell,Urine 8 /hpf (0-4); Urobilinogen,Urine <2.0 mg/dL (<2.0); WBC,Urine 4 /hpf (0-5)
[2021-12-24 20:08] LABS: Basophils # (A) 0.06 X 10*3/uL (0.00-0.10); Basophils % (A) 0.5 %; Eosinophils # (A) 0.22 X 10*3/uL (0.04-0.35); HCT 39.2 % (37.2-46.3); HGB 11.7 g/dL (12.0-15.0); Immature Grans, Automated 0.5 %; Lymphocytes # (A) 1.29 X 10*3/uL (0.90-5.00); Lymphocytes % (A) 11.5 %; MCH 30.2 pg (27.0-32.0); MCHC 29.8 g/dL (32.0-37.0); MCV 101.3 fL (80.0-97.0); Mean Platelet Volume 11.6 fL (9.5-12.2); Monocytes % (A) 7.2 %; NRBC Per 100 WBC 0 /100 WBCS (0.0-0.0); Neutrophils # (A) 8.74 X 10*3/uL (1.80-7.70); Neutrophils % (A) 78.3 %; Platelet Count 299 X 10*3/uL (140-440); RBC 3.87 X 10*6/uL (4.10-5.20); RBC Morphology NORMAL; RDW 13.6 % (11.5-14.5); WBC 11.17 X 10*3/uL (4.50-10.00)
[2021-12-25 00:32] LABS: % Iron Saturation 13.26 (12.00-45.00); African American GFR (CKD) 35.3 (60.0-200.0); Albumin 3.9 g/dL (3.8-4.9); Albumin/Globulin Ratio 1.31 (1.60-3.17); Anion Gap 15.8 mmol/L (10.00-18.00); BUN/Creat Ratio 21.75 Ratio (12.00-20.00); Blood Urea Nitrogen 37.2 mg/dL (9.0-27.0); Calcium 9.9 mg/dL (8.7-10.3); Magnesium 2.3 mg/dL (1.5-2.4); Non-African American GFR(CKD) 30.5 (60.0-200.0); Phosphorus 3.7 mg/dL (2.4-5.1); Potassium 4.2 mmol/L (3.5-5.5); Total Bilirubin 0.3 mg/dL (0.30-1.20); Total Protein 6.9 g/dL (6.2-8.2); Uric Acid 4.8 mg/dL (2.9-7.7)
== END | disposition home or self-care (01) ==
LOC: LABWHC1 08:45
PROVIDERS: ATTEND Internal Medicine
DX: D64.9 Anemia, unspecified (principal); E55.9 Vitamin D deficiency, unspecified; N39.0 Urinary tract infection, site not specified; N25.81 Secondary hyperparathyroidism of renal origin; N18.32 Chronic kidney disease, stage 3b; M10.9 Gout, unspecified
CPT/HCPCS: 36415; 80053; 81001; 82043; 82306; 82570; 82728; 83540; 83550; 83735; 83970; 84100; 84550; 85025

== ENCOUNTER → 2022-03-03 | Outpatient (CLI) | payer MEDICARE, OTHER ==
[2022-03-03 13:39] LABS: Appearance,Urine Clear (Clear); Bilirubin,Urine Negative (Negative); Blood,Urine Negative (Negative); Color,Urine Light Yellow; Glucose,Urine (UA) 3+ (Negative); Ketones,Urine Negative (Negative); Leukocyte Esterase,Urine Negative (Negative); Nitrite,Urine Negative (Negative); PH, Urine 5.5 (5.0-8.0); Protein,Urine Negative (Negative); Specific Gravity,Urine 1.011 (1.001-1.035); Urobilinogen,Urine <2.0 mg/dL (<2.0)
[2022-03-03 14:34] LABS: % Iron Saturation 19.24 (12.00-45.00); African American GFR (CKD) 33.4 (60.0-200.0); Albumin 4.2 g/dL (3.8-4.9); Albumin/Globulin Ratio 1.39 (1.60-3.17); Anion Gap 11.7 mmol/L (10.00-18.00); BUN/Creat Ratio 17.99 Ratio (12.00-20.00); Blood Urea Nitrogen 32.2 mg/dL (9.0-27.0); Calcium 10.2 mg/dL (8.7-10.3); Carbon Dioxide 27.2 mmol/L (20.0-27.5); Globulin 3.1 g/dL (1.6-3.3); Non-African American GFR(CKD) 28.8 (60.0-200.0); Phosphorus 3.5 mg/dL (2.4-5.1); Potassium 4.9 mmol/L (3.5-5.5); Total Bilirubin 0.4 mg/dL (0.30-1.20); Total Protein 7.3 g/dL (6.2-8.2); Uric Acid 4.6 mg/dL (2.9-7.7)
[2022-03-03 15:13] LABS: Basophils # (A) 0.06 X 10*3/uL (0.00-0.10); Basophils % (A) 0.6 %; Eosinophils # (A) 0.25 X 10*3/uL (0.04-0.35); Eosinophils % (A) 2.6 %; HCT 42.1 % (37.2-46.3); HGB 12.9 g/dL (12.0-15.0); Immature Grans, Automated 0.4 %; Lymphocytes # (A) 1.25 X 10*3/uL (0.90-5.00); Lymphocytes % (A) 13.2 %; MCH 30.8 pg (27.0-32.0); MCHC 30.6 g/dL (32.0-37.0); MCV 100.5 fL (80.0-97.0); Mean Platelet Volume 11.5 fL (9.5-12.2); Monocytes # (A) 0.65 X 10*3/uL (0.20-1.00); Monocytes % (A) 6.8 %; NRBC Per 100 WBC 0 /100 WBCS (0.0-0.0); Neutrophils # (A) 7.25 X 10*3/uL (1.80-7.70); Neutrophils % (A) 76.4 %; Platelet Count 268 X 10*3/uL (140-440); RBC 4.19 X 10*6/uL (4.10-5.20); RDW 13.4 % (11.5-14.5)
[2022-03-03 20:08] LABS: Urine Creatinine 54.3 mg/dL (28.0-217.0)
== END | disposition home or self-care (01) ==
LOC: LABWHC1 08:47
PROVIDERS: ATTEND Internal Medicine
DX: N25.81 Secondary hyperparathyroidism of renal origin (principal); D64.9 Anemia, unspecified; N39.0 Urinary tract infection, site not specified; E55.9 Vitamin D deficiency, unspecified; M10.9 Gout, unspecified; N18.32 Chronic kidney disease, stage 3b
CPT/HCPCS: 36415; 80053; 81003; 82043; 82306; 82570; 82728; 83540; 83550; 83735; 83970; 84100; 84550; 85025

== ENCOUNTER → 2022-04-02 | Outpatient (CLI) | payer MEDICARE, OTHER ==
--- NOTE | 2022-04-02 13:09 | CT ---
EXAMINATION TYPE: CT abdomen wo con DATE OF EXAM: 04/02/2022 COMPARISON: No previous CT scan is available for comparison HISTORY: polycystic kidney disease CT DLP: 917.8 mGycm Automated exposure control for dose reduction was used. TECHNIQUE: Helical acquisition of images was performed from the lung bases through the top of iliac crest to include entire abdomen. CONTRAST: Performed with Oral Contrast and without IV contrast. FINDINGS: LUNG BASES: No significant abnormality is appreciated. LIVER/GB: No significant abnormality is appreciated. PANCREAS: Atrophic pancreas. SPLEEN: 17 mm ill-defined hypodensity seen at the posterior aspect of the spleen, incompletely charac terized by this nonenhanced CT scan recommend further ultrasound assessment. ADRENALS: No significant abnormality is seen. KIDNEYS: Atrophic changes of the kidneys. Bilateral perinephric fat stranding and reactive fluid, non specific. Suspected scattered small renal cysts, suboptimally assessed by this nonenhanced CT scan. N o hydroureter or hydronephrosis. BOWEL: Unremarkable stomach, duodenum and visualized small bowel. No gross abnormality of the visual ized colon. LYMPH NODES: No pathologically enlarged abdominal lymph nodes. OSSEOUS STRUCTURES: No gross aggressive bone lesion. FREE AIR: No free air is visualized. OTHER: Minimal arterial atherosclerotic calcification. No sizable ascites. IMPRESSION: Atrophic changes of the kidneys and other renal findings as described above. Incompletely characterized hypodensity at the posterior aspect of the spleen, for further ultrasound assessment.
== END | disposition home or self-care (01) ==
LOC: RADCTMAIN 08:55
PROVIDERS: ATTEND Internal Medicine
DX: N26.1 Atrophy of kidney (terminal) (principal)
CPT/HCPCS: 74150; Q9967

== ENCOUNTER → 2022-04-14 | Outpatient (CLI) | payer MEDICARE, OTHER ==
--- NOTE | 2022-04-14 09:03 | US ---
EXAMINATION TYPE: US abdomen limited DATE OF EXAM: 04/14/2022 COMPARISON: CT 04/02/2022 CLINICAL HISTORY: 67-year-old female D73.4 CYST OF SPLEEN, R93.89 ABNORMAL FINDINGS ON DIAGNOSTIC KAYLYNN GING. Splenic cyst seen on CT. TECHNIQUE: Multiple sonographic images of the left upper quadrant. EXAM MEASUREMENTS: Spleen: 11.4 cm 1. Spleen: No obvious pathology seen. Cyst on CT was not visualized on today's ultrasound. Detailed assessment limited by patient's large body habitus. 2. Left Kidney: Multiple cysts visualized. Pt has APKD. Detailed assessment limited by patient lar ge body habitus. IMPRESSION: 1. No obvious splenic cyst identified on the current ultrasound exam. Detailed assessment limited by patient large body habitus. The CT finding is likely benign. Consider a 6-12 month follow-up CT to re assess. 2. Underlying known multiple cysts within the left kidney. Again, detailed assessment limited by raymond ent large body habitus.
== END | disposition home or self-care (01) ==
LOC: RADUSWWP 07:57
PROVIDERS: ATTEND Internal Medicine
DX: N28.1 Cyst of kidney, acquired (principal); R93.89 Abnormal findings on diagnostic imaging of other specified body structures
CPT/HCPCS: 76705

== ENCOUNTER → 2022-07-21 | Outpatient (CLI) | payer MEDICARE, OTHER ==
[2022-07-21 14:19] LABS: HCT 39.4 % (37.2-46.3); HGB 12.9 g/dL (12.0-15.0); MCH 31.3 pg (27.0-32.0); MCHC 32.7 g/dL (32.0-37.0); MCV 95.6 fL (80.0-97.0); Mean Platelet Volume 11.7 fL (9.5-12.2); NRBC Per 100 WBC 0 /100 WBCS (0.0-0.0); Platelet Count 286 X 10*3/uL (140-440); RBC 4.12 X 10*6/uL (4.10-5.20); RDW 13.5 % (11.5-14.5); WBC 11.13 X 10*3/uL (4.50-10.00)
[2022-07-21 14:49] LABS: % Iron Saturation 12.88 (12.00-45.00); African American GFR (CKD) 37.4 (60.0-200.0); Albumin 4.3 g/dL (3.8-4.9); Albumin/Globulin Ratio 1.67 (1.60-3.17); Anion Gap 12.6 mmol/L (10.00-18.00); BUN/Creat Ratio 20.12 Ratio (12.00-20.00); Blood Urea Nitrogen 32.6 mg/dL (9.0-27.0); Calcium 9.9 mg/dL (8.7-10.3); Carbon Dioxide 22.3 mmol/L (20.0-27.5); Globulin 2.6 g/dL (1.6-3.3); Non-African American GFR(CKD) 32.3 (60.0-200.0); Phosphorus 3.9 mg/dL (2.4-5.1); Potassium 4.7 mmol/L (3.5-5.5); Total Bilirubin 0.5 mg/dL (0.30-1.20); Total Protein 6.8 g/dL (6.2-8.2); Uric Acid 4.6 mg/dL (2.9-7.7)
[2022-07-21 15:09] LABS: Hepatitis A Antibody IgM Nonreactive (Nonreactive); Hepatitis B Core IgM Nonreactive (Nonreactive); Hepatitis B Surface Antigen Nonreactive (Nonreactive); Hepatitis C IgG Antibody Nonreactive (Nonreactive)
[2022-07-21 15:42] LABS: DNA Double-Stranded NEGATIVE (NEGATIVE)
[2022-07-21 22:15] LABS: Urine Creatinine 30.2 mg/dL (28.0-217.0)
[2022-07-22 12:53] LABS: Appearance,Urine Clear (Clear); Bilirubin,Urine Negative (Negative); Blood,Urine Negative (Negative); Color,Urine Yellow (Yellow); Ketones,Urine Negative (Negative); Nitrite,Urine Negative (Negative); Urobilinogen,Urine 0.2 (0.2,1.0)
[2022-07-22 14:08] LABS: C-ANCA <1:20 Titer (<1:20)
[2022-07-22 15:57] LABS: Free Kappa Lt Chain Qnt, Serum 4.57 mg/dL (0.33-1.94); Free Lambda Lt Chain Qnt, Seru 3.63 mg/dL (0.57-2.63)
== END | disposition home or self-care (01) ==
LOC: LABWHC1 08:41
PROVIDERS: ATTEND Internal Medicine
DX: M10.9 Gout, unspecified (principal); N39.0 Urinary tract infection, site not specified; R80.9 Proteinuria, unspecified; E21.3 Hyperparathyroidism, unspecified; N18.32 Chronic kidney disease, stage 3b; D63.1 Anemia in chronic kidney disease; E55.9 Vitamin D deficiency, unspecified
CPT/HCPCS: 36415; 80053; 80074; 81003; 82043; 82306; 82570; 82728; 83516; 83540; 83550; 83735; 83883; 83970; 84100; 84550; 85027; 86038; 86160; 86162; 86225; 86255; 86334

== ENCOUNTER → 2022-08-06 | Outpatient (CLI) | payer MEDICARE, OTHER ==
--- NOTE | 2022-08-07 10:02 | MM ---
Reason for Exam: Screening (asymptomatic). Last mammogram was performed 1 year(s) and 1 month(s) ago. Patient History: Menarche at age 11. First Full-Term at age 30. Late child-bearing (after 29). Left ovary removed at age 50. Right ovary removed at age 50. Hysterectomy at age 50. Postmenopausal. 05/02/2019, US discontinued breast bx RT on the right side. Risk Values: Shoshana 5 year model risk: 2.4%. NCI Lifetime model risk: 7.6%. Prior Study Comparison: 04/21/2019 Bilateral Diagnostic Mammogram, [facility]. 07/08/2020 Bilateral Screening Mammogram, [facility]. 07/09/2021 Bilateral Screening Mammogram, [facility]. Tissue Density: There are scattered fibroglandular densities. Findings: Analyzed By CAD. There is no suspicious group of microcalcifications or new suspicious mass in either breast. Overall Assessment: Negative, BI-RAD 1 Management: Screening Mammogram of both breasts in 1 year. A clinical breast exam by your physician is recommended on an annual basis and results should be correlated with mammographic findings. [facility] will attempt to contact patient to return for supplemental views and ultrasound if indicated. Electronically signed and approved by: Sabas Owens DO
== END | disposition home or self-care (01) ==
LOC: RADMAMWWP 13:28
PROVIDERS: ATTEND Internal Medicine
DX: Z12.31 Encounter for screening mammogram for malignant neoplasm of breast (principal); Z78.0 Asymptomatic menopausal state
CPT/HCPCS: 77063; 77067

== ENCOUNTER → 2022-08-12 | Outpatient (CLI) | payer MEDICARE, OTHER ==
--- NOTE | 2022-08-12 15:15 | US ---
EXAMINATION TYPE: US kidneys/renal and bladder DATE OF EXAM: 08/12/2022 COMPARISON: US, CT CLINICAL HISTORY: Q61.2 POLYCYSTIC KIDNEY. Autosomal dominant polycystic kidney per order. EXAM MEASUREMENTS: Right Kidney: 13.6 x 7.0 x 7.1 cm Left Kidney: 13.1 x 6.0 x 5.7 cm Right Kidney: Appears enlarged. Cortex appears thin. Multiple anechoic and septated anechoic areas se en. Largest measures 1.7 x 1.3 x 1.6 cm. Hyperechoic focus seen lower: 0.7 x 0.8 x 0.4 cm. Left Kidney: Appears enlarged. Cortex appears thin. Multiple subcentimeter anechoic areas seen. Large st anechoic area measures: 1.8 x 1.9 x 1.8 cm. Lobulated cyst seen laterally: 2.7 x 2.3 x 2.7 cm. Bladder: Appears anechoic Bilateral Jets seen: No Cortical thinning and loss of cortical echogenicity bilaterally. Tiny thin-walled cysts bilaterally a re present. IMPRESSION: Findings consistent with chronic medical renal disease redemonstrated bilaterally. No obv ious hydronephrosis seen bilaterally.
== END | disposition home or self-care (01) ==
LOC: RADUSWWP 14:15
PROVIDERS: ATTEND Internal Medicine
DX: Q61.2 Polycystic kidney, adult type (principal)
CPT/HCPCS: 76770

== ENCOUNTER → 2023-01-26 | Outpatient (CLI) | payer MEDICARE, OTHER ==
[2023-01-26 16:33] LABS: HCT 39.6 % (37.2-46.3); HGB 12.1 g/dL (12.0-15.0); MCH 30.9 pg (27.0-32.0); MCHC 30.6 g/dL (32.0-37.0); MCV 101.3 fL (80.0-97.0); NRBC Per 100 WBC 0 /100 WBCS (0.0-0.0); Platelet Count 251 X 10*3/uL (140-440); RBC 3.91 X 10*6/uL (4.10-5.20); RDW 13.9 % (11.5-14.5); WBC 10.12 X 10*3/uL (4.50-10.00)
[2023-01-26 16:56] LABS: % Iron Saturation 18.67 (12.00-45.00); African American GFR (CKD) 34.6 (60.0-200.0); Albumin 3.8 g/dL (3.8-4.9); Albumin/Globulin Ratio 1.53 (1.60-3.17); BUN/Creat Ratio 19.02 Ratio (12.00-20.00); Blood Urea Nitrogen 32.9 mg/dL (9.0-27.0); Calcium 9.5 mg/dL (8.7-10.3); Carbon Dioxide 22.7 mmol/L (20.0-27.5); Globulin 2.5 g/dL (1.6-3.3); Magnesium 1.8 mg/dL (1.5-2.4); Non-African American GFR(CKD) 29.8 (60.0-200.0); Phosphorus 3.5 mg/dL (2.4-5.1); Potassium 4.6 mmol/L (3.5-5.5); Total Bilirubin 0.4 mg/dL (0.30-1.20); Total Protein 6.3 g/dL (6.2-8.2)
[2023-01-26 18:30] LABS: Appearance,Urine Clear (Clear); Bilirubin,Urine Negative (Negative); Blood,Urine Negative (Negative); Color,Urine Yellow (Yellow); Ketones,Urine Negative (Negative); Nitrite,Urine Negative (Negative); PH, Urine 5.5 (5.0-8.0); Specific Gravity,Urine 1.019 (1.001-1.030); Urobilinogen,Urine 0.2 (0.2,1.0)
[2023-01-26 19:21] LABS: Bacteria,Urine Trace /HPF (None Seen); Yeast (UA) Present /LPF (None Seen)
== END | disposition home or self-care (01) ==
LOC: LABWHC1 08:06
PROVIDERS: ATTEND Internal Medicine
DX: N18.32 Chronic kidney disease, stage 3b (principal); D64.9 Anemia, unspecified; N39.0 Urinary tract infection, site not specified; N25.81 Secondary hyperparathyroidism of renal origin; E55.9 Vitamin D deficiency, unspecified
CPT/HCPCS: 36415; 80053; 81001; 82043; 82306; 82570; 82728; 83540; 83550; 83735; 83970; 84100; 85027

== ENCOUNTER → 2023-04-06 | Outpatient (CLI) | payer MEDICARE, OTHER ==
[2023-04-06 15:56] LABS: Basophils # (A) 0.05 X 10*3/uL (0.00-0.10); Basophils % (A) 0.5 %; Eosinophils # (A) 0.28 X 10*3/uL (0.04-0.35); Eosinophils % (A) 2.9 %; HCT 39.1 % (37.2-46.3); HGB 12.1 d/dL (12.0-15.0); Lymphocytes # (A) 1.63 X 10*3/uL (0.90-5.00); Lymphocytes % (A) 17.1 %; MCH 30.9 pg (27.0-32.0); MCHC 30.9 d/dL (32.0-37.0); Mean Platelet Volume 12.1 FL (9.5-12.2); Monocytes # (A) 0.68 X 10*3/uL (0.20-1.00); Monocytes % (A) 7.1 %; NRBC Per 100 WBC 0 X 10*3/uL (0.00-0.01); Neutrophils # (A) 6.86 X 10*3/uL (1.80-7.70); Neutrophils % (A) 72.1 %; Platelet Count 264 X 10*3/uL (140-440); RBC 3.91 X 10*6/uL (4.10-5.20); RDW 13.6 % (11.5-14.5); WBC 9.53 X 10*3/uL (4.50-10.00)
[2023-04-06 17:17] LABS: % Iron Saturation 19.66 (12.00-45.00); ALT 42 U/L (8-44); AST 36 U/L (13-35); Albumin/Globulin Ratio 1.54 Ratio (1.60-3.17); Alkaline Phosphatase 91 U/L (41-126); BUN/Creat Ratio 23.84 Ratio (12.00-20.00); Blood Urea Nitrogen 45.3 mg/dL (9.0-27.0); Calcium 9.5 mg/dL (8.7-10.3); Carbon Dioxide 18.5 mmol/L (21.6-31.8); Chloride 105 mmol/L (96-109); Globulin 2.6 d/dL (1.6-3.3); Glucose 125 mg/dL (70-110); Iron 69 UG/DL (50-170); Phosphorus 3.7 mg/dL (2.4-5.1); Potassium 4.4 mmol/L (3.5-5.5); Sodium 137 mmol/L (135-145); Total Bilirubin 0.3 mg/dL (0.3-1.2); Total Iron Binding Capacity 351 UG/DL (228-460); Total Protein 6.6 d/dL (6.2-8.2); Uric Acid 5.1 mg/dL (2.9-7.7)
[2023-04-06 22:43] LABS: Appearance,Urine Clear (Clear); Bilirubin,Urine Negative (Negative); Blood,Urine Negative (Negative); Color,Urine Yellow (Yellow); Ketones,Urine Negative (Negative); Nitrite,Urine Negative (Negative); Specific Gravity,Urine 1.016 (1.001-1.030); Urobilinogen,Urine 0.2 E.U./DL
[2023-04-06 23:21] LABS: Bacteria,Urine Trace; Yeast (UA) Present (None Seen)
== END | disposition home or self-care (01) ==
LOC: LABWHC1 08:05
PROVIDERS: ATTEND Internal Medicine
DX: N25.81 Secondary hyperparathyroidism of renal origin (principal); N18.32 Chronic kidney disease, stage 3b; D63.1 Anemia in chronic kidney disease; N39.0 Urinary tract infection, site not specified; E55.9 Vitamin D deficiency, unspecified; M10.9 Gout, unspecified; R80.9 Proteinuria, unspecified
CPT/HCPCS: 36415; 80053; 81001; 82043; 82306; 82570; 82728; 83540; 83550; 83735; 83970; 84100; 84550; 85025

== ENCOUNTER → 2023-04-12 | Outpatient (CLI) | payer MEDICARE, OTHER ==
[2023-04-12 16:24] LABS: ALT 39 U/L (8-44); AST 15 U/L (13-35); Albumin 3.9 d/dL (3.8-4.9); Alkaline Phosphatase 95 U/L (41-126); BUN/Creat Ratio 18.28 Ratio (12.00-20.00); Blood Urea Nitrogen 32.9 mg/dL (9.0-27.0); Calcium 9.5 mg/dL (8.7-10.3); Carbon Dioxide 21.6 mmol/L (21.6-31.8); Chloride 106 mmol/L (96-109); Globulin 2.3 d/dL (1.6-3.3); Glucose 144 mg/dL (70-110); Potassium 5.1 mmol/L (3.5-5.5); Sodium 139 mmol/L (135-145); Total Bilirubin 0.2 mg/dL (0.3-1.2); Total Protein 6.2 d/dL (6.2-8.2)
[2023-04-12 19:54] LABS: Appearance,Urine Clear (Clear); Bilirubin,Urine Negative (Negative); Blood,Urine Negative (Negative); Color,Urine Yellow (Yellow); Ketones,Urine Negative (Negative); Nitrite,Urine Negative (Negative); Specific Gravity,Urine 1.008 (1.001-1.030); Urobilinogen,Urine 0.2 E.U./DL
[2023-04-12 22:31] LABS: Amorphous Sediment,Urine Present (None Seen); Yeast (UA) Present (None Seen)
[2023-04-12 22:49] LABS: Bacteria,Urine None Seen (None Seen)
== END | disposition home or self-care (01) ==
LOC: LABWHC1 08:22
PROVIDERS: ATTEND Internal Medicine
DX: N18.32 Chronic kidney disease, stage 3b (principal); N39.0 Urinary tract infection, site not specified
CPT/HCPCS: 36415; 80053; 81001; 87086

== ENCOUNTER → 2023-08-09 | Outpatient (CLI) | payer MEDICARE, OTHER ==
--- NOTE | 2023-08-10 18:46 | MM ---
Reason for Exam: Screening (asymptomatic). Last screening mammogram was performed 12 month(s) ago. Patient History: Menarche at age 11. First Full-Term at age 30. Late child-bearing (after 29). Left ovary removed at age 50. Right ovary removed at age 50. Hysterectomy at age 50. Postmenopausal. 05/02/2019, US discontinued breast bx RT on the right side. Risk Values: Shoshana 5 year model risk: 2.4%. NCI Lifetime model risk: 7.3%. Prior Study Comparison: 07/08/2020 Bilateral Screening Mammogram, [facility]. 07/09/2021 Bilateral Screening Mammogram, [facility]. 08/06/2022 Bilateral MG 3D screening mammo w/cad, [facility]. Tissue Density: There are scattered fibroglandular densities. Findings: Analyzed By CAD. Chronic bilateral nodularity. There is no suspicious group of microcalcifications or new suspicious mass in either breast. Overall Assessment: Benign, BI-RAD 2 Management: Screening Mammogram of both breasts in 1 year. . Patient should continue monthly self-breast exams. A clinical breast exam by your physician is recommended on an annual basis. This exam should not preclude additional follow-up of suspicious palpable abnormalities. Note on Shoshana scores and lifetime risk: 1. A Shoshana score greater than 3% is considered moderate risk. If this is the case, consider specialist referral to assess eligibility for a risk reducing agent. 2. If overall lifetime risk for the development of breast cancer is 20% or higher, the patient may qualify for future screening with alternating mammogram and breast MRI. Electronically signed and approved by: Luh Church M.D. Radiologist
== END | disposition home or self-care (01) ==
LOC: RADMAMWWP 13:07
PROVIDERS: ATTEND Internal Medicine
DX: Z12.31 Encounter for screening mammogram for malignant neoplasm of breast (principal); Z78.0 Asymptomatic menopausal state
CPT/HCPCS: 77063; 77067

== ENCOUNTER → 2023-09-03 | Outpatient (CLI) | payer MEDICARE, OTHER ==
[2023-09-03 11:58] LABS: Basophils # (A) 0.07 X 10*3/uL (0.00-0.10); Basophils % (A) 0.7 %; Eosinophils # (A) 0.31 X 10*3/uL (0.04-0.35); Eosinophils % (A) 2.9 %; HGB 12.3 g/dL (12.0-15.0); Lymphocytes # (A) 1.78 X 10*3/uL (0.90-5.00); Lymphocytes % (A) 16.7 %; MCH 31.5 pg (27.0-32.0); MCHC 32.4 g/dL (32.0-37.0); MCV 97.2 FL (80.0-97.0); Mean Platelet Volume 11.3 FL (9.5-12.2); Monocytes # (A) 0.72 X 10*3/uL (0.20-1.00); Monocytes % (A) 6.7 %; NRBC Per 100 WBC 0 X 10*3/uL (0.00-0.01); Neutrophils # (A) 7.78 X 10*3/uL (1.80-7.70); Neutrophils % (A) 72.7 %; Platelet Count 265 X 10*3/uL (140-440); RBC 3.91 X 10*6/uL (4.10-5.20); RDW 13.6 % (11.5-14.5); WBC 10.69 X 10*3/uL (4.50-10.00)
[2023-09-03 12:30] LABS: % Iron Saturation 21.69 (12.00-45.00); ALT 32 U/L (8-44); AST 18 U/L (13-35); Albumin/Globulin Ratio 1.67 Ratio (1.60-3.17); Alkaline Phosphatase 81 U/L (41-126); BUN/Creat Ratio 16.89 Ratio (12.00-20.00); Blood Urea Nitrogen 32.1 mg/dL (9.0-27.0); Calcium 10.1 mg/dL (8.7-10.3); Carbon Dioxide 20.5 mmol/L (21.6-31.8); Chloride 99 mmol/L (96-109); Globulin 2.4 g/dL (1.6-3.3); Glucose 167 mg/dL (70-110); Iron 72 UG/DL (50-170); Magnesium 1.7 mg/dL (1.5-2.4); Phosphorus 3.7 mg/dL (2.4-5.1); Potassium 4.2 mmol/L (3.5-5.5); Sodium 134 mmol/L (135-145); Total Bilirubin 0.4 mg/dL (0.3-1.2); Total Iron Binding Capacity 332 UG/DL (228-460); Total Protein 6.4 g/dL (6.2-8.2); Uric Acid 4.8 mg/dL (2.9-7.7)
[2023-09-03 16:48] LABS: Appearance,Urine Cloudy (Clear); Bilirubin,Urine Negative (Negative); Blood,Urine Negative (Negative); Color,Urine Yellow (Yellow); Ketones,Urine Negative (Negative); Nitrite,Urine Negative (Negative); Specific Gravity,Urine 1.017 (1.001-1.030); Urobilinogen,Urine 0.2 E.U./DL
[2023-09-03 17:14] LABS: Bacteria,Urine 1+ (None Seen); Yeast (UA) Present (None Seen)
== END | disposition home or self-care (01) ==
LOC: LABWHC1 07:59
PROVIDERS: ATTEND Internal Medicine
DX: I12.9 Hypertensive chronic kidney disease with stage 1 through stage 4 chronic kidney disease, or unspecified chronic kidney disease (principal); E11.22 Type 2 diabetes mellitus with diabetic chronic kidney disease; E11.65 Type 2 diabetes mellitus with hyperglycemia; N18.32 Chronic kidney disease, stage 3b; D63.1 Anemia in chronic kidney disease; N25.81 Secondary hyperparathyroidism of renal origin; M10.00 Idiopathic gout, unspecified site; E78.2 Mixed hyperlipidemia; E55.9 Vitamin D deficiency, unspecified; N39.0 Urinary tract infection, site not specified; M10.9 Gout, unspecified; Z79.84 Long term (current) use of oral hypoglycemic drugs; R80.9 Proteinuria, unspecified
CPT/HCPCS: 36415; 80053; 81001; 82043; 82306; 82570; 82728; 83036; 83540; 83550; 83735; 83970; 84100; 84443; 84550; 85025

== ENCOUNTER → 2023-09-28 | Outpatient (CLI) | payer MEDICARE, OTHER ==
[2023-09-28 15:50] LABS: BUN/Creat Ratio 14.94 Ratio (12.00-20.00); Blood Urea Nitrogen 25.4 mg/dL (9.0-27.0); Carbon Dioxide 22.4 mmol/L (21.6-31.8); Chloride 104 mmol/L (96-109); Glucose 139 mg/dL (70-110); Potassium 4.5 mmol/L (3.5-5.5); Sodium 138 mmol/L (135-145)
== END | disposition home or self-care (01) ==
LOC: LABWHC1 08:02
PROVIDERS: ATTEND Internal Medicine
DX: E11.9 Type 2 diabetes mellitus without complications (principal)
CPT/HCPCS: 36415; 80048

== ENCOUNTER → 2024-01-03 | Outpatient (CLI) | payer MEDICARE, OTHER ==
[2024-01-03 16:04] LABS: Appearance,Urine Clear (Clear); Bilirubin,Urine Negative (Negative); Blood,Urine Negative (Negative); Color,Urine Yellow (Yellow); Ketones,Urine Negative (Negative); Nitrite,Urine Negative (Negative); PH, Urine 5.5; Specific Gravity,Urine 1.021 (1.001-1.030); Urobilinogen,Urine 0.2 E.U./DL
[2024-01-03 18:21] LABS: HCT 42.8 % (37.2-46.3); HGB 13.3 g/dL (12.0-15.0); MCH 31.3 pg (27.0-32.0); MCHC 31.1 g/dL (32.0-37.0); MCV 100.7 FL (80.0-97.0); Mean Platelet Volume 12.5 FL (9.5-12.2); NRBC Per 100 WBC 0 X 10*3/uL (0.00-0.01); Platelet Count 231 X 10*3/uL (140-440); RBC 4.25 X 10*6/uL (4.10-5.20); RDW 13.3 % (11.5-14.5)
[2024-01-03 19:06] LABS: % Iron Saturation 16.77 (12.00-45.00); ALT 30 U/L (8-44); AST 19 U/L (13-35); Albumin 3.9 g/dL (3.8-4.9); Alkaline Phosphatase 80 U/L (41-126); BUN/Creat Ratio 18.24 Ratio (12.00-20.00); Calcium 9.4 mg/dL (8.7-10.3); Carbon Dioxide 20.8 mmol/L (21.6-31.8); Chloride 104 mmol/L (96-109); Globulin 2.3 g/dL (1.6-3.3); Glucose 155 mg/dL (70-110); Iron 54 UG/DL (50-170); Magnesium 1.8 mg/dL (1.5-2.4); Phosphorus 3.1 mg/dL (2.4-5.1); Potassium 4.1 mmol/L (3.5-5.5); Sodium 138 mmol/L (135-145); Total Bilirubin 0.3 mg/dL (0.3-1.2); Total Iron Binding Capacity 322 UG/DL (228-460); Total Protein 6.2 g/dL (6.2-8.2); Uric Acid 4.2 mg/dL (2.9-7.7)
[2024-01-04 12:40] LABS: Free Kappa Lt Chain Qnt, Serum 5.73 mg/dL (0.33-1.94)
== END | disposition home or self-care (01) ==
LOC: LABWHC1 08:30
PROVIDERS: ATTEND Internal Medicine
DX: E11.22 Type 2 diabetes mellitus with diabetic chronic kidney disease (principal); N18.32 Chronic kidney disease, stage 3b; D63.1 Anemia in chronic kidney disease; N39.0 Urinary tract infection, site not specified; E55.9 Vitamin D deficiency, unspecified; N25.81 Secondary hyperparathyroidism of renal origin; M10.9 Gout, unspecified; R80.9 Proteinuria, unspecified
CPT/HCPCS: 36415; 80053; 81003; 82043; 82306; 82570; 82728; 83540; 83550; 83735; 83883; 83970; 84100; 84166; 84550; 85027; 86334

== ENCOUNTER 2024-04-24 19:16 | Emergency (ER) | payer MEDICARE, OTHER ==
[2024-04-24 19:32] VITALS: TEMP 97.7
[2024-04-24 19:57] LABS: Basophils # (A) 0.1 k/uL (0-0.2); Basophils % (A) 1 %; Eosinophils # (A) 0.4 k/uL (0-0.7); Eosinophils % (A) 3 %; HCT 40.3 % (34.0-46.0); HGB 13.2 gm/dL (11.4-16.0); Lymphocytes # (A) 2.2 k/uL (1.0-4.8); Lymphocytes % (A) 21 %; MCH 31.9 pg (25.0-35.0); MCHC 32.9 g/dL (31.0-37.0); MCV 97.2 fL (80.0-100.0); Mean Platelet Volume 8.7; Monocytes # (A) 0.5 k/uL (0-1.0); Monocytes % (A) 5 %; Neutrophils # (A) 7.6 k/uL (1.3-7.7); Neutrophils % (A) 69 %; Platelet Count 301 k/uL (150-450); RBC 4.15 m/uL (3.80-5.40); RDW 13.6 % (11.5-15.5); WBC 10.9 k/uL (3.8-10.6)
[2024-04-24 20:26] LABS: INR 0.9 (<1.2); Partial Thromboplastin Time 23.8 sec (22.0-30.0); Prothrombin Time 10.2 sec (10.0-12.5)
--- NOTE | 2024-04-24 20:50 | XR ---
EXAMINATION TYPE: XR chest 2V DATE OF EXAM: 04/24/2024 COMPARISON: 08/16/2018 HISTORY: 69-year-old female dysrhythmia TECHNIQUE: PA and lateral views FINDINGS: Heart normal size. Interstitial prominence is unchanged. Bandlike atelectasis or scarring at the righ t midlung. Some mild patchy density at the left base. No other consolidation or pleural effusion. Dis h mid and lower thoracic spine. IMPRESSION: Chronic changes but with some new patchy atelectasis versus early infiltrate at the left base.
[2024-04-24 20:53] LABS: African American GFR (CKD) 28 (>60 ml/min/1.73 sqM); Anion Gap 10 mmol/L; Blood Urea Nitrogen 37 mg/dL (7-17); Calcium 10.2 mg/dL (8.4-10.2); Carbon Dioxide 21 mmol/L (22-30); Chloride 105 mmol/L (98-107); Glucose 122 mg/dL (74-99); Magnesium 1.9 mg/dL (1.6-2.3); Non-African American GFR(CKD) 24 (>60 ml/min/1.73 sqM); Sodium 136 mmol/L (137-145); Total Bilirubin 0.9 mg/dL (0.2-1.3)
[2024-04-24 20:57] LABS: ALT 25 U/L (4-34); AST 44 U/L (14-36); Albumin 4.4 g/dL (3.5-5.0); Alkaline Phosphatase 69 U/L (38-126); Potassium 4.1 mmol/L (3.5-5.1); Total Protein 7.5 g/dL (6.3-8.2)
--- NOTE | 2024-04-24 22:41 | ED ---
Arrhythmia/Palpitations HPI - General Source: patient, RN notes reviewed Mode of arrival: ambulatory Limitations: no limitations <Yamini Patino - Last Filed: 04/24/24 22:40> - General Source: patient, RN notes reviewed, old records reviewed <Luke Leyva - Last Filed: 04/25/24 02:19> - General Chief Complaint: Arrhythmia/Palpitations Stated Complaint: Heart Flutter Time Seen by Provider: 04/24/24 22:40 - History of Present Illness Initial Comments: Quick note: 69-year-old female presented to the ER with a chief complaint of heart palpitations. Patient states she does have a history of palpitations and is following up with Dr. Neville. She states palpitations are usually very sporadic but since last night they have been persistent. She denies any chest pain, shortness of breath, lightheadedness, dizziness, nausea, vomiting. (Yamini Patino) Patient is a 69-year-old female presents emergency department complaining of heart palpitations. Has a history of this but noticed that has been more prominent over the last 2 days presents as a quick note note. I evaluated her when she was placed in her room. She has no current symptoms. She does have a history of this and has required multiple loop recorder's which revealed nothing in the past. Follows up with Dr. Neville in the outpatient setting. No history of CAD. No cardiac stents. Presents for further evaluation at this time. Denies any other complaints. Denies chest pain, shortness of breath, abdominal pain, nausea, vomiting. Denies any lightheadedness. (Luke Leyva) - Related Data Home Medications Medication Instructions Recorded Confirmed Aspirin 81 mg PO DAILY 01/04/15 10/01/20 Furosemide [Lasix] 20 mg PO QAM 01/04/15 10/01/20 LORazepam [Ativan] 1 mg PO BID PRN 01/04/15 10/01/20 Simvastatin [Zocor] 20 mg PO HS 01/04/15 10/01/20 allopurinoL [Zyloprim] 300 mg PO QAM 01/04/15 10/01/20 Ferrous Gluconate [Iron] 27 mg PO DAILY 04/14/19 10/01/20 Metoprolol Tartrate [Lopressor] 50 mg PO BID 04/14/19 10/01/20 Potassium Chloride [Klor-Con 10] 10 meq PO DAILY 04/14/19 10/01/20 Acetaminophen [Tylenol] 500 mg PO Q6H PRN 09/27/20 10/01/20 Benazepril HCl 20 mg PO BID 09/27/20 10/01/20 Cholecalciferol [Vitamin D3] 1 tab PO DAILY 09/27/20 10/01/20 Previous Rx's Medication Instructions Recorded HYDROcodone/APAP 5-325MG [[place] 5] 1 each PO Q6HR PRN #12 tab 10/01/20 Allergies Allergy/AdvReac Type Severity Reaction Status Date / Time No Known Allergies Allergy Verified 10/01/20 09:20 Review of Systems ROS Other: All systems not noted in ROS Statement are negative. <Yamini Patino - Last Filed: 04/24/24 22:40> ROS Other: All systems not noted in ROS Statement are negative. <Luke Leyva - Last Filed: 04/25/24 02:19> ROS Statement: Those systems with pertinent positive or pertinent negative responses have been documented in the HPI. Review of Systems: CONST: Denies fever EYES: Denies blurry vision ENT: Denies nasal congestion C/V: Denies Chest pain RESP: Denies shortness of breath GI: Denies abdominal pain : Denies dysuria SKIN: Denies rash. MSK: Denies joint pain. NEURO: Denies headache (Luke Leyva) Past Medical History Past Medical History: Chest Pain / Angina, Diabetes Mellitus, Hyperlipidemia, Hypertension, Osteoarthritis (OA) Additional Past Medical History / Comment(s): TAKEN OFF METFORMIN. DIAGNOSED WITH 3RD STAGE POLYCYSTIC KIDNEY DISEASE IN MAY 2020 ([facility]). Hx. kidney stones. Hx gout History of Any Multi-Drug Resistant Organisms: None Reported Past Surgical History: Section, Hysterectomy, Orthopedic Surgery Additional Past Surgical History / Comment(s): 08/06/20 LEFTT ROTATOR CUFF REPAIR. Lithotripsy. right knee meniscus repair Past Anesthesia/Blood Transfusion Reactions: Postoperative Nausea & Vomiting (PONV) Past Psychological History: Anxiety Smoking Status: Never smoker Past Alcohol Use History: None Reported Past Drug Use History: None Reported - Past Family History Mother Family Medical History: Cancer <Yamini Patino - Last Filed: 04/24/24 22:40> General Exam Limitations: no limitations <Yamini Patino - Last Filed: 04/24/24 22:40> <Luke Leyva - Last Filed: 04/25/24 02:19> - General Exam Comments Initial Comments: Visual Physical Exam Vital signs reviewed General: Well-appearing, nontoxic, no acute distress. Head: Normocephalic, atraumatic Eyes: PERRLA, EOMI ENT: Airway patent Chest: Nonlabored breathing Skin: No visual rash, normal skin tone Neuro: Alert and oriented 3 Musculoskeletal: No gross abnormalities (Yamini Patino) General: Appears in no acute distress. HEAD: Normal with no signs of head trauma. EYES: PERRLA, EOMI, conjunctiva normal, no discharge. ENT: Hearing grossly intact, normal oropharynx. RESPIRATORY: Clear breath sounds bilaterally. No wheezes, rales, or rhonchi. C/V: Regular rate and rhythm. S1 and S2 auscultated, no edema, peripheral pulses 2+ and intact throughout ABD: Abd is soft, nontender, nondistended EXT: Normal range of motion, no obvious deformity SKIN: No rashes or lesions observed on exposed skin. NEURO: Alert and oriented x 4. Cranial nerves II-XII intact. No focal sensory or strength deficits. (Luke Leyva) Course Vital Signs 04/24/24 04/25/24 19:30 01:57 Temperature 97.7 F Pulse Rate 100 83 Respiratory 20 16 Rate Blood Pressure 157/84 138/82 O2 Sat by Pulse 98 97 Oximetry Medical Decision Making - Lab Data Result diagrams: 04/24/24 19:46 04/24/24 19:46 <Yamini Patino - Last Filed: 04/24/24 22:40> - Lab Data Result diagrams: 04/24/24 19:46 04/24/24 19:46 - EKG Data -: EKG Interpreted by Me <Luke Leyva - Last Filed: 04/25/24 02:19> - Medical Decision Making I performed the quick note portion of this chart. Electronically signed by Yamini Patino PA-C (Yamini Patino) Was pt. sent in by a medical professional or institution ([facility], [facility], urgent care, hospital, or long term...) When possible be specific @ -No Did you speak to anyone other than the patient for history (EMS, parent, family, police, friend...)? What history was obtained from this source @ -No Did you review nursing and triage notes (agree or disagree)? Why? @ -I reviewed and agree with nursing and triage notes Were old charts reviewed (outside hosp., previous admission, EMS record, old EKG, old radiological studies, urgent care reports/EKG's, long term records)? Report findings @ -Compared EKGs from EKG from 2018 in August, which revealed no obvious acute findings. Differential Diagnosis (chest pain, altered mental status, abdominal pain women, abdominal pain men, vaginal bleeding, weakness, fever, dyspnea, syncope, headache, dizziness, GI bleed, back pain, seizure, CVA, palpatations, mental health, musculoskeletal)? @ -Differential Palpitations Ventricular arrhythmias, atrial arrhythmias, myocardial infarction, anemia, thyrotoxicosis, electrolyte imbalance, hypokalemia, pulmonary embolism, pulmonary disease, drugs, alcohol, anxiety, stress.... This is not meant to be an all-inclusive list. EKG interpreted by me (3pts min.). @ -As above X-rays interpreted by me (1pt min.). @ -Chest x-ray reveals no obvious acute cardiopulmonary process. Radiology concern for possible infiltrate however patient has not been coughing and I have low suspicion. Likely atelectasis. CT interpreted by me (1pt min.). @ -None done U/S interpreted by me (1pt. min.). @ -None done What testing was considered but not performed or refused? (CT, X-rays, U/S, labs)? Why? @ -None What meds were considered but not given or refused? Why? @ -None Did you discuss the management of the patient with other professionals (professionals i.e. ., PA, [facility], lab, RT, psych nurse, licensed clinical social worker, professor of english, teacher, information security officer, child support case officer)? Give summary @ -No Was smoking cessation discussed for >3mins.? @ -No Was critical care preformed (if so, how long)? @ -No Were there social determinants of health that impacted care today? How? (Homelessness, low income, unemployed, alcoholism, drug addiction, transportation, low edu. Level, literacy, decrease access to med. care, snf, rehab)? @ -No Was there de-escalation of care discussed even if they declined (Discuss DNR or withdrawal of care, Hospice)? DNR status @ -No What co-morbidities impacted this encounter? (DM, HTN, Smoking, COPD, CAD, Cancer, CVA, ARF, Chemo, Hep., AIDS, mental health diagnosis, sleep apnea, morbid obesity)? @ -None Was patient admitted / discharged? Hospital course, mention meds given and route, prescriptions, significant lab abnormalities, going to OR and other pertinent info. @ -Patient presents for heart palpitations. Has a history of this. Originally seen as a quick note. When I evaluated the patient, pending second troponin and EKG. Initial workup unremarkable including undetectable troponin. Patient has CKD and appears to have baseline BUN and creatinine within normal range for her. Vital signs within acceptable limits. EKG did show PVCs. Repeat EKG EKG also showed PVCs. Repeat troponin remains undetectable. At this time I did evaluate the patient, I updated her on the results of workup. She will be discharged home at this time with close follow-up with cardiology as well as her PCP. She was in agreement this plan. I instructed the patient to follow up with their PCP in the next 1-3 days. I explained that the patient should return to the emergency department if they experience any worsening symptoms. Strict return precautions were discussed with the patient. The patient expressed understanding of these instructions. I ans wered all questions that the patient had. The patient was discharged home in good condition with their prescriptions and follow up information. Undiagnosed new problem with uncertain prognosis? @ -No Drug Therapy requiring intensive monitoring for toxicity (Heparin, Nitro, Insulin, Cardizem)? @ -No Were any procedures done? @ -No Diagnosis/symptom? @ -Heart palpitations, PVCs Acute, or Chronic, or Acute on Chronic? @ -Acute Uncomplicated (without systemic symptoms) or Complicated (systemic symptoms)? @ -Uncomplicated Side effects of treatment? @ -No Exacerbation, Progression, or Severe Exacerbation? @ -No Poses a threat to life or bodily function? How? (Chest pain, [place], [place], pneumonia, PE, COPD, DKA, ARF, appy, cholecystitis, CVA, Diverticulitis, Homicidal, Suicidal, threat to staff... and all critical care pts) @ -No (Luke Leyva) - Lab Data Lab Results 04/24/24 04/24/24 04/24/24 Range/Units 19:46 19:46 19:46 WBC 10.9 H (3.8-10.6) k/uL RBC 4.15 (3.80-5.40) m/uL Hgb 13.2 (11.4-16.0) gm/dL Hct 40.3 (34.0-46.0) % MCV 97.2 (80.0-100.0) fL MCH 31.9 (25.0-35.0) pg MCHC 32.9 (31.0-37.0) g/dL RDW 13.6 (11.5-15.5) % Plt Count 301 (150-450) k/uL MPV 8.7 Neutrophils % 69 % Lymphocytes % 21 % Monocytes % 5 % Eosinophils % 3 % Basophils % 1 % Neutrophils # 7.6 (1.3-7.7) k/uL Lymphocytes # 2.2 (1.0-4.8) k/uL Monocytes # 0.5 (0-1.0) k/uL Eosinophils # 0.4 (0-0.7) k/uL Basophils # 0.1 (0-0.2) k/uL PT 10.2 (10.0-12.5) sec INR 0.9 (<1.2) APTT 23.8 (22.0-30.0) sec Sodium 136 L (137-145) mmol/L Potassium 4.1 (3.5-5.1) mmol/L Chloride 105 (98-107) mmol/L Carbon Dioxide 21 L (22-30) mmol/L Anion Gap 10 mmol/L BUN 37 H (7-17) mg/dL Creatinine 2.03 H (0.52-1.04) mg/dL Est GFR (CKD-EPI)AfAm 28 (>60 ml/min/1.73 sqM) Est GFR (CKD-EPI)NonAf 24 (>60 ml/min/1.73 sqM) Glucose 122 H (74-99) mg/dL Calcium 10.2 (8.4-10.2) mg/dL Magnesium 1.9 (1.6-2.3) mg/dL Total Bilirubin 0.9 (0.2-1.3) mg/dL AST 44 H (14-36) U/L ALT 25 (4-34) U/L Alkaline Phosphatase 69 (38-126) U/L Troponin I (0.000-0.034) ng/mL Total Protein 7.5 (6.3-8.2) g/dL Albumin 4.4 (3.5-5.0) g/dL 04/24/24 04/25/24 Range/Units 19:46 00:59 WBC (3.8-10.6) k/uL RBC (3.80-5.40) m/uL Hgb (11.4-16.0) gm/dL Hct (34.0-46.0) % MCV (80.0-100.0) fL MCH (25.0-35.0) pg MCHC (31.0-37.0) g/dL RDW (11.5-15.5) % Plt Count (150-450) k/uL MPV Neutrophils % % Lymphocytes % % Monocytes % % Eosinophils % % Basophils % % Neutrophils # (1.3-7.7) k/uL Lymphocytes # (1.0-4.8) k/uL Monocytes # (0-1.0) k/uL Eosinophils # (0-0.7) k/uL Basophils # (0-0.2) k/uL PT (10.0-12.5) sec INR (<1.2) APTT (22.0-30.0) sec Sodium (137-145) mmol/L Potassium (3.5-5.1) mmol/L Chloride (98-107) mmol/L Carbon Dioxide (22-30) mmol/L Anion Gap mmol/L BUN (7-17) mg/dL Creatinine (0.52-1.04) mg/dL Est GFR (CKD-EPI)AfAm (>60 ml/min/1.73 sqM) Est GFR (CKD-EPI)NonAf (>60 ml/min/1.73 sqM) Glucose (74-99) mg/dL Calcium (8.4-10.2) mg/dL Magnesium (1.6-2.3) mg/dL Total Bilirubin (0.2-1.3) mg/dL AST (14-36) U/L ALT (4-34) U/L Alkaline Phosphatase (38-126) U/L Troponin I <0.012 <0.012 (0.000-0.034) ng/mL Total Protein (6.3-8.2) g/dL Albumin (3.5-5.0) g/dL - EKG Data EKG Comments: 12-lead Electrocardiogram Interpretation Note EKG was reviewed and interpreted by myself. 12-lead ECG performed at 1936 is interpreted by me as revealing normal sinus rhythm at a rate of 99 beats per minute. [place] is normal. OR interval is 156 ms, QRS duration is 80 ms, QTc is 398 ms.. There were no ST or T wave abnormalities to suggest myocardial ischemia or injury. R wave progression across the precordium was satisfactory. By my interpretation this EKG is non-diagnostic for acute ischemia. 12-lead Electrocardiogram Interpretation Note EKG was reviewed and interpreted by myself. 12-lead ECG performed at 2325 is interpreted by me as revealing normal sinus rhythm at a rate of 87 beats per mi nute. PVCs present. [place] is normal. OR interval is 174 ms, QRS duration is 115 ms, QTc is 404 ms.. There were no ST or T wave abnormalities to suggest myocardial ischemia or injury. R wave progression across the precordium was satisfactory. By my interpretation this EKG is non-diagnostic for acute ischemia. (Luke Leyva) Disposition <Yamini Patino - Last Filed: 04/24/24 22:40> Is patient prescribed a controlled substance at d/c from ED?: No Time of Disposition: 01:51 <Luke Leyva - Last Filed: 04/25/24 02:19> Clinical Impression: Heart palpitations, PVC (premature ventricular contraction) Disposition: HOME SELF-CARE Condition: Good Instructions (If sedation given, give patient instructions): Heart Palpitations (ED), Premature Ventricular Contractions (ED) Referrals: Dorie Rivera MD [Primary Care Provider] - 1-2 days
[2024-04-25 02:02] VITALS: BP 138/82; PULSE 83; RESP 16
== END 2024-04-25 01:57 | disposition home or self-care (01) ==
LOC: EC 19:16
DX: I49.3 Ventricular premature depolarization (principal)
CPT/HCPCS: 36415; 71046; 80053; 83735; 84484; 85025; 85610; 85730; 93005; 99285

== ENCOUNTER → 2024-07-04 | Outpatient (CLI) | payer MEDICARE, OTHER ==
[2024-07-04 15:22] LABS: Appearance,Urine Turbid (Clear); Bilirubin,Urine Negative (Negative); Blood,Urine Small (Negative); Color,Urine Yellow (Yellow); Ketones,Urine Negative (Negative); Nitrite,Urine Negative (Negative); PH, Urine 5.5; Specific Gravity,Urine 1.016 (1.001-1.030); Urobilinogen,Urine 0.2 E.U./DL
[2024-07-04 15:28] LABS: Bacteria,Urine 4+ (None Seen)
[2024-07-04 16:31] LABS: HCT 40.2 % (37.2-46.3); HGB 12.8 g/dL (12.0-15.0); MCH 31.1 pg (27.0-32.0); MCHC 31.8 g/dL (32.0-37.0); MCV 97.8 FL (80.0-97.0); Mean Platelet Volume 11.7 FL (9.5-12.2); NRBC Per 100 WBC 0 X 10*3/uL (0.00-0.01); Platelet Count 252 X 10*3/uL (140-440); RBC 4.11 X 10*6/uL (4.10-5.20); RDW 13.4 % (11.5-14.5); WBC 9.17 X 10*3/uL (4.50-10.00)
[2024-07-04 17:06] LABS: ALT 23 U/L (8-44); AST 18 U/L (13-35); Albumin/Globulin Ratio 1.67 Ratio (1.60-3.17); Alkaline Phosphatase 77 U/L (41-126); BUN/Creat Ratio 15.75 Ratio (12.00-20.00); Blood Urea Nitrogen 31.5 mg/dL (9.0-27.0); Calcium 10.1 mg/dL (8.7-10.3); Carbon Dioxide 25.6 mmol/L (21.6-31.8); Chloride 101 mmol/L (96-109); Globulin 2.4 g/dL (1.6-3.3); Glucose 141 mg/dL (70-110); Iron 86 UG/DL (50-170); Magnesium 1.7 mg/dL (1.5-2.4); Phosphorus 3.5 mg/dL (2.4-5.1); Potassium 4.6 mmol/L (3.5-5.5); Sodium 138 mmol/L (135-145); Total Bilirubin 0.4 mg/dL (0.3-1.2); Total Iron Binding Capacity 344 UG/DL (228-460); Total Protein 6.4 g/dL (6.2-8.2); Uric Acid 4.7 mg/dL (2.9-7.7)
[2024-07-04 20:53] LABS: Urine Creatinine 92.4 mg/dL (28.0-217.0)
== END | disposition home or self-care (01) ==
LOC: LABWHC1 08:51
PROVIDERS: ATTEND Internal Medicine
DX: N18.32 Chronic kidney disease, stage 3b (principal); D63.1 Anemia in chronic kidney disease; N39.0 Urinary tract infection, site not specified; E55.9 Vitamin D deficiency, unspecified; N25.81 Secondary hyperparathyroidism of renal origin; M10.9 Gout, unspecified; R80.9 Proteinuria, unspecified
CPT/HCPCS: 36415; 80053; 81001; 82043; 82306; 82570; 82728; 83540; 83550; 83735; 83970; 84100; 84550; 85027

== ENCOUNTER → 2024-08-15 | Outpatient (CLI) | payer MEDICARE, OTHER ==
--- NOTE | 2024-08-16 21:31 | BD ---
EXAMINATION TYPE: Axial Bone Density DATE OF EXAM: 08/15/2024 CLINICAL HISTORY: 69 years old Female. ICD-10 CODE: N95.1 POST MENOPAUSAL,M85.88 BONE DISORDER , Z78 .0 Height: 65 Weight: 235 FRAX RISK QUESTIONS: Alcohol (3 or more units per day): no Family History (Parent hip fracture): no Glucocorticoids (More than 3mos): no (Ex: prednisone, prednisolone, methylprednisolone, dexamethasone, and hydrocortisone). History of Fracture in Adulthood: no Secondary Osteoporosis: 1. Type 1 Diabetes: no 2. Hyperthyroidism: no 3. Menopause before 45: yes 4. Malnutrition: no 5. Chronic liver disease: no Rheumatoid Arthritis: no Current Tobacco Use: no RISK FACTORS HISTORY OF: Surgery to Spine/Hip(right/left)/Wrist (right/left): no EXAM MEASUREMENTS: Bone mineral densitometry was performed using the [employer] System. Bone mineral density as measured about the Lumbar spine is: ----- L1-L4(G/cm2): 1.281 T Score Values are as follows: ----- L1: 1.5 ----- L2: 0.4 ----- L3: 0.5 ----- L4: 0.9 ----- L1-L4: 0.8 Z Score Values are as follows: ----- L1: 2.0 ----- L2: 0.9 ----- L3: 1.0 ----- L4: 1.4 ----- L1-L4: 1.3 Bone mineral density has: decreased -0.5 % since study of: 09.19.2014 Bone mineral density about the R hip (g/cm2): 0.872 Bone mineral density about the L hip (g/cm2): 0.847 T Score values are as follows: -----R Neck: -0.9 -----L Neck: -1.1 -----R Total: -1.1 -----L Total: -1.3 Z Score values are as follows: -----R Neck: 0.0 -----L Neck: -0.2 -----R Total: -0.4 -----L Total: -0.6 Bone mineral density has: decreased -13.1 % since study of: 09.19.2014 FRAX%s: The graph provided illustrates a 8.2% chance for a major osteoporotic fx and a 0.9% chance fo r the hips probability for fx in 10 years time. IMPRESSION: Osteopenia (T Score between -2.5 and -1). There is slightly increased risk of fracture and the patient may be considered for treatment. Re-Screen 2-5 years. NOTE: T-SCORE=SD OF THE YOUNG ADULT MEAN. [facility], , 08/16/2024 9:29 PM
--- NOTE | 2024-08-21 13:13 | MM ---
Reason for Exam: Screening (asymptomatic). Last mammogram was performed 1 year(s) and 1 month(s) ago. Patient History: Menarche at age 11. First Full-Term at age 30. Late child-bearing (after 29). Left ovary removed at age 50. Right ovary removed at age 50. Hysterectomy at age 50. Postmenopausal. 05/02/2019, US discontinued breast bx RT on the right side. Risk Values: Shoshana 5 year model risk: 2.4%. NCI Lifetime model risk: 6.9%. Prior Study Comparison: 07/09/2021 Bilateral Screening Mammogram, [facility]. 08/06/2022 Bilateral MG 3D screening mammo w/cad, [facility]. 08/09/2023 Bilateral MG 3D screening mammo w/cad, [facility]. Tissue Density: There are scattered areas of fibroglandular density. Findings: Analyzed By CAD. Right breast: There is no suspicious group of microcalcifications or new suspicious mass. Left breast: There is no suspicious group of microcalcifications or new suspicious mass. Overall Assessment: Negative, BI-RAD 1 Management: Screening Mammogram of both breasts in [address] [facility] will attempt to contact patient to return for supplemental views and ultrasound if indicated. Patient should continue monthly self-breast exams. A clinical breast exam by your physician is recommended on an annual basis. This exam should not preclude additional follow-up of suspicious palpable abnormalities. Note on Shoshana scores and lifetime risk: 1. A Shoshana score greater than 3% is considered moderate risk. If this is the case, consider specialist referral to assess eligibility for a risk reducing agent. 2. If overall lifetime risk for the development of breast cancer is 20% or higher, the patient may qualify for future screening with alternating mammogram and breast MRI. [facility], , 08/21/2024 1:10 PM. Electronically signed and approved by: Sabas Owens DO
== END | disposition home or self-care (01) ==
LOC: RADMAMWWP 12:22
PROVIDERS: ATTEND Internal Medicine
DX: Z12.31 Encounter for screening mammogram for malignant neoplasm of breast (principal); M85.88 Other specified disorders of bone density and structure, other site; Z90.722 Acquired absence of ovaries, bilateral; Z78.0 Asymptomatic menopausal state; R92.323 Mammographic fibroglandular density, bilateral breasts
CPT/HCPCS: 77063; 77067; 77080

== ENCOUNTER → 2024-08-15 | Outpatient (CLI) | payer MEDICARE, OTHER ==
--- NOTE | 2024-08-16 18:36 | US ---
EXAMINATION TYPE: US kidneys/renal and bladder DATE OF EXAM: 08/15/2024 COMPARISON: 07/12/23 CLINICAL INDICATION: Female, 69 years old with history of N18.22 STAGE 3B CHRONIC KIDNEY DISEASE; CKD TECHNIQUE: Grayscale imaging of the bilateral kidneys and urinary bladder: FINDINGS: EXAM MEASUREMENTS: Right Kidney: 13.9 x 9.7 x 7.3 cm Left Kidney: 14.7 x 6.4 x 5.3 cm Right Kidney: multiple cystic areas seen. Largest in superior pole measuring 2.7 x 2.9 x 2.0cm and a ppears complex. Left Kidney: multiple cystic areas seen. Largest in inf pole measuring 2.1 x 2.1 x 1.6cm and appears simple Bladder: wnl Bilateral Jets seen: yes There is no evidence for hydronephrosis at this point in time. No nephrolithiasis is seen. No alicia s are identified. The urinary bladder is anechoic. IMPRESSION: 1. Complex cyst right kidney. 2. Simple cyst left kidney [facility], , 08/16/2024 6:34 PM
== END | disposition home or self-care (01) ==
LOC: RADUSWWP 12:19
PROVIDERS: ATTEND Internal Medicine
DX: N18.32 Chronic kidney disease, stage 3b (principal); N28.1 Cyst of kidney, acquired
CPT/HCPCS: 76770

== ENCOUNTER → 2024-09-14 | Outpatient (CLI) | payer MEDICARE, OTHER ==
[2024-09-14 15:58] LABS: Basophils # (A) 0.05 X 10*3/uL (0.00-0.10); Basophils % (A) 0.5 %; Eosinophils # (A) 0.28 X 10*3/uL (0.04-0.35); HCT 41.6 % (37.2-46.3); HGB 13.5 g/dL (12.0-15.0); Lymphocytes # (A) 1.21 X 10*3/uL (0.90-5.00); Lymphocytes % (A) 13.1 %; MCH 32.2 pg (27.0-32.0); MCHC 32.5 g/dL (32.0-37.0); MCV 99.3 FL (80.0-97.0); Mean Platelet Volume 11.5 FL (9.5-12.2); Monocytes # (A) 0.61 X 10*3/uL (0.20-1.00); Monocytes % (A) 6.6 %; NRBC Per 100 WBC 0 X 10*3/uL (0.00-0.01); Neutrophils # (A) 7.06 X 10*3/uL (1.80-7.70); Neutrophils % (A) 76.3 %; Platelet Count 282 X 10*3/uL (140-440); RBC 4.19 X 10*6/uL (4.10-5.20); RDW 13.5 % (11.5-14.5); WBC 9.26 X 10*3/uL (4.50-10.00)
[2024-09-14 16:23] LABS: ALT 28 U/L (8-44); AST 23 U/L (13-35); Albumin 4.1 g/dL (3.8-4.9); Albumin/Globulin Ratio 1.71 Ratio (1.60-3.17); Alkaline Phosphatase 73 U/L (41-126); BUN/Creat Ratio 18.47 Ratio (12.00-20.00); Blood Urea Nitrogen 31.4 mg/dL (9.0-27.0); Calcium 10.2 mg/dL (8.7-10.3); Carbon Dioxide 25.2 mmol/L (21.6-31.8); Chloride 101 mmol/L (96-109); Chol/HDL Ratio 5.95 Ratio; Globulin 2.4 g/dL (1.6-3.3); Glucose 137 mg/dL (70-110); Potassium 4.2 mmol/L (3.5-5.5); Sodium 139 mmol/L (135-145); Total Bilirubin 0.5 mg/dL (0.3-1.2); Total Protein 6.5 g/dL (6.2-8.2); Uric Acid 4.7 mg/dL (2.9-7.7)
== END | disposition home or self-care (01) ==
LOC: LABWHC1 08:04
PROVIDERS: ATTEND Internal Medicine
DX: E11.9 Type 2 diabetes mellitus without complications (principal); E55.9 Vitamin D deficiency, unspecified; E78.2 Mixed hyperlipidemia; M10.09 Idiopathic gout, multiple sites; R53.83 Other fatigue; Z79.899 Other long term (current) drug therapy
CPT/HCPCS: 36415; 80053; 80061; 82306; 83036; 84443; 84550; 85025

== ENCOUNTER → 2024-10-30 | Outpatient (CLI) | payer MEDICARE, OTHER ==
[2024-10-30 10:45] LABS: ALT 21 U/L (8-44); AST 18 U/L (13-35); Chol/HDL Ratio 5.96 Ratio
== END | disposition home or self-care (01) ==
LOC: LABWHC1 07:09
PROVIDERS: ATTEND Internal Medicine Cardiovascular Disease
DX: E78.2 Mixed hyperlipidemia (principal)
CPT/HCPCS: 36415; 80061; 84450; 84460

== ENCOUNTER → 2024-11-06 | Outpatient (CLI) | payer MEDICARE, OTHER ==
[2024-11-06 14:56] LABS: Appearance,Urine Cloudy (Clear); Bilirubin,Urine Negative (Negative); Blood,Urine Trace (Negative); Color,Urine Yellow (Yellow); Ketones,Urine Negative (Negative); Nitrite,Urine Positive (Negative); Urobilinogen,Urine 0.2 E.U./DL
[2024-11-06 15:11] LABS: MCH 31.1 pg (27.0-32.0); MCHC 31.7 g/dL (32.0-37.0); MCV 98.1 FL (80.0-97.0); Mean Platelet Volume 11.6 FL (9.5-12.2); NRBC Per 100 WBC 0 X 10*3/uL (0.00-0.01); Platelet Count 246 X 10*3/uL (140-440); RBC 4.18 X 10*6/uL (4.10-5.20); RDW 13.4 % (11.5-14.5); WBC 9.83 X 10*3/uL (4.50-10.00)
[2024-11-06 15:50] LABS: % Iron Saturation 19.53 (12.00-45.00); ALT 23 U/L (8-44); AST 19 U/L (13-35); Albumin 4.2 g/dL (3.8-4.9); Albumin/Globulin Ratio 1.62 Ratio (1.60-3.17); Alkaline Phosphatase 82 U/L (41-126); Blood Urea Nitrogen 31.5 mg/dL (9.0-27.0); Calcium 10.1 mg/dL (8.7-10.3); Chloride 104 mmol/L (96-109); Globulin 2.6 g/dL (1.6-3.3); Glucose 151 mg/dL (70-110); Iron 74 UG/DL (50-170); Magnesium 1.9 mg/dL (1.5-2.4); Phosphorus 3.2 mg/dL (2.4-5.1); Sodium 140 mmol/L (135-145); Total Bilirubin 0.4 mg/dL (0.3-1.2); Total Iron Binding Capacity 379 UG/DL (228-460); Total Protein 6.8 g/dL (6.2-8.2); Uric Acid 4.6 mg/dL (2.9-7.7)
[2024-11-06 16:09] LABS: Bacteria,Urine 3+ (None Seen)
[2024-11-06 20:26] LABS: Urine Creatinine 75.8 mg/dL (28.0-217.0)
== END | disposition home or self-care (01) ==
LOC: LABWHC1 09:09
PROVIDERS: ATTEND Internal Medicine
DX: E55.9 Vitamin D deficiency, unspecified (principal); D64.9 Anemia, unspecified; N39.0 Urinary tract infection, site not specified; N18.32 Chronic kidney disease, stage 3b; N25.81 Secondary hyperparathyroidism of renal origin; M10.9 Gout, unspecified; R80.9 Proteinuria, unspecified
CPT/HCPCS: 36415; 80053; 81001; 82043; 82306; 82570; 82728; 83540; 83550; 83735; 83970; 84100; 84550; 85027

== ENCOUNTER → 2025-02-12 | Outpatient (CLI) | payer MEDICARE, OTHER ==
[2025-02-12 14:56] LABS: Basophils # (A) 0.08 X 10*3/uL (0.00-0.10); Basophils % (A) 0.8 %; Eosinophils # (A) 0.25 X 10*3/uL (0.04-0.35); Eosinophils % (A) 2.6 %; HCT 42.3 % (37.2-46.3); HGB 13.4 g/dL (12.0-15.0); Lymphocytes # (A) 1.21 X 10*3/uL (0.90-5.00); Lymphocytes % (A) 12.8 %; MCHC 31.7 g/dL (32.0-37.0); MCV 97.9 FL (80.0-97.0); Monocytes # (A) 0.76 X 10*3/uL (0.20-1.00); NRBC Per 100 WBC 0 X 10*3/uL (0.00-0.01); Neutrophils # (A) 7.14 X 10*3/uL (1.80-7.70); Neutrophils % (A) 75.4 %; Platelet Count 265 X 10*3/uL (140-440); RBC 4.32 X 10*6/uL (4.10-5.20); RDW 13.3 % (11.5-14.5); WBC 9.48 X 10*3/uL (4.50-10.00)
[2025-02-12 15:45] LABS: Magnesium 1.8 mg/dL (1.5-2.4)
[2025-02-12 15:46] LABS: % Iron Saturation 27.57 (12.00-45.00); ALT 23 U/L (8-44); AST 21 U/L (13-35); Alkaline Phosphatase 76 U/L (41-126); BUN/Creat Ratio 17.27 Ratio (12.00-20.00); Calcium 10.7 mg/dL (8.7-10.3); Chloride 102 mmol/L (96-109); Globulin 2.5 g/dL (1.6-3.3); Glucose 163 mg/dL (70-110); Iron 102 UG/DL (50-170); Phosphorus 3.8 mg/dL (2.4-5.1); Potassium 4.9 mmol/L (3.5-5.5); Sodium 138 mmol/L (135-145); Total Bilirubin 0.4 mg/dL (0.3-1.2); Total Iron Binding Capacity 370 UG/DL (228-460); Total Protein 6.5 g/dL (6.2-8.2); Uric Acid 4.3 mg/dL (2.9-7.7)
== END | disposition home or self-care (01) ==
LOC: LABWHC1 08:29
PROVIDERS: ATTEND Internal Medicine
DX: N18.32 Chronic kidney disease, stage 3b (principal)
CPT/HCPCS: 36415; 80053; 82043; 82306; 82570; 82728; 83540; 83550; 83735; 83970; 84100; 84550; 85025

== ENCOUNTER → 2025-02-27 | Outpatient (CLI) | payer MEDICARE, OTHER ==
[2025-02-27 16:11] VITALS: BP 126/76; PULSE 66; RESP 12; TEMP 98.1
--- NOTE | 2025-02-27 16:34 | P.CNPUL ---
History of Present Illness Consult date: 02/27/25 Reason for consult: obstructive sleep apnea History of present illness: This is a 69-year-old female patient who is coming in for sleep apnea evaluation. The patient thinks she has sleep apnea. She is snoring loud and she is also having excessive daytime sleepiness. During a recent [address] trip, she felt sleepy. On another occasion, she had to pull to the rest area to take a nap. She goes to bed between 10 and 11 PM. She watches television for around half an hour and following that she goes to sleep and she gets out of bed at around 7:30 AM in the morning. She wakes up tired and fatigued and she does not take any naps during the day. She sleeps on her side. No restlessness in lower extremities. No leg kicks. No sleep paralysis. No hallucinations. No cataplexy. She sleeps on her side and she has a dry mouth in the morning. She is aware of the diagnosis of sleep apnea and her has [place] and he utilizes a CPAP unit. Her weight has remained stable over the past 5 years. No excessive utilization of alcoholic beverages or caffeine. No substance abuse. Comorbidities include chronic stage IV kidney disease with polycystic kidney disease, hypertension, diabetes mellitus, gout, hyperlipidemia. She also has chronic anxiety takes Xanax on an as-needed basis. Review of Systems Constitutional: Reports as per HPI, Reports daytime sleepiness, Reports fatigue, Reports weight gain Eyes: denies as per HPI, denies blurred vision, denies bulging eye, denies decreased vision, denies diplopia, denies discharge, denies dry eye, denies irritation, denies itching, denies pain, denies photophobia, denies loss of peripheral vision, denies loss of vision, denies tunnel vision/blind spots Ears: deny: decreased hearing, ear discharge, earache, tinnitus Ears, nose, mouth and throat: Reports as per HPI Breasts: absent: as per HPI, change in shape, gynecomastia, masses, nipple discharge, pain, skin changes, swelling Breasts: Reports as per HPI Cardiovascular: Reports as per HPI Respiratory: Reports snoring Gastrointestinal: Reports as per HPI Genitourinary: Reports as per HPI Menstruation: Reports as per HPI Musculoskeletal: Reports limitation of motion Musculoskeletal: absent: ankle pain, ankle stiffness, ankle swelling, as per HPI, elbow pain, elbow stiffness, elbow swelling, foot pain, foot stiffness, foot swelling, hand pain, hand stiffness, hand swelling, hip pain, hip stiffness, hip swelling, knee pain, knee stiffness, knee swelling, shoulder pain, shoulder stiffness, shoulder swelling, wrist pain, wrist stiffness, wrist swelling Integumentary: Reports as per HPI Neurological: Reports as per HPI Psychiatric: Reports change in sleep habits, Reports hypersomnia, Reports sleep disturbances Endocrine: Reports as per HPI, Reports fatigue Hematologic/Lymphatic: Reports as per HPI Allergic/Immunologic: Reports as per HPI Past Medical History Past Medical History: Chest Pain / Angina, Diabetes Mellitus, Hyperlipidemia, Hypertension, Osteoarthritis (OA) Additional Past Medical History / Comment(s): TAKEN OFF METFORMIN. DIAGNOSED WITH 3RD STAGE POLYCYSTIC KIDNEY DISEASE IN MAY 2020 ([employer]). Hx. kidney stones. Hx gout History of Any Multi-Drug Resistant Organisms: None Reported Past Surgical History: Section, Hysterectomy, Orthopedic Surgery Additional Past Surgical History / Comment(s): 08/06/20 LEFTT ROTATOR CUFF REPAIR. Lithotripsy. right knee meniscus repair Past Anesthesia/Blood Transfusion Reactions: Postoperative Nausea & Vomiting (PONV) Past Psychological History: Anxiety Smoking Status: Never smoker Past Alcohol Use History: None Reported Past Drug Use History: None Reported - Past Family History Mother Family Medical History: Cancer Medications and Allergies Home Medications Medication Instructions Recorded Confirmed Type Aspirin 81 mg PO DAILY 01/04/15 02/27/25 History LORazepam [Ativan] 1 mg PO BID PRN 01/04/15 02/27/25 History Simvastatin [Zocor] 20 mg PO HS 01/04/15 02/27/25 History allopurinoL [Zyloprim] 300 mg PO QAM 01/04/15 02/27/25 History Metoprolol Tartrate [Lopressor] 50 mg PO BID 04/14/19 02/27/25 History Benazepril HCl 20 mg PO BID 09/27/20 02/27/25 History Cholecalciferol [Vitamin D3] 1 tab PO DAILY 09/27/20 02/27/25 History Empagliflozin [Jardiance] 25 mg PO 02/27/25 History Pregabalin [Lyrica] 50 mg PO BID 02/27/25 02/27/25 History Sodium Bicarbonate Tab 650 mg PO QID 02/27/25 02/27/25 History amLODIPine [Norvasc] 2.5 mg PO DAILY 02/27/25 02/27/25 History amLODIPine [Norvasc] 5 mg PO DAILY 02/27/25 02/27/25 History calcitrioL [Rocaltrol (GEQ)] 0.5 mcg PO 02/27/25 History glipiZIDE 5 mg PO 02/27/25 History Allergies Allergy/AdvReac Type Severity Reaction Status Date / Time No Known Allergies Allergy Verified 10/01/20 09:20 Physical Exam Vitals: Vital Signs Temp Pulse Resp BP Pulse Ox 02/27/25 16:08 98.1 F 66 12 126/76 99 Intake and Output 02/27/25 02/27/25 02/27/25 06:59 14:59 22:59 Other: Weight 114.759 kg The patient appeared well nourished and normally developed. Vital signs as documented. Obesity with a weight of 253 and a body mass index of 40.8 Head exam is unremarkable. No scleral icterus or corneal arcus noted. Neck is without jugular venous distension, thyromegaly, or carotid bruits. Carotid upstrokes are brisk bilaterally. Lungs are clear to auscultation and percussion. Cardiac exam reveals the PMI to be normally sized and situated. Rhythm is regul ar. First and second heart sounds normal. No murmurs, rubs or gallops. Abdominal exam reveals normal bowel sounds, no masses, no organomegaly and no aortic enlargement. Extremities are nonedematous and both femoral and pedal pulses are normal. Examination of the skin revealed no evidence of significant rashes, suspicious appearing nevi or other concerning lesions. Neurologically, the patient is awake and alert and the patient does not have any focal neurological deficit. Cranial nerves are essentially intact. Assessment and Plan Plan: Chronic hypersomnia, [place] score of 12. Impaired daytime functionality and the patient is falling asleep while driving. She is concerned of sleep apnea. Her condition could be potentially affected by chronic kidney disease and medication. Obesity with a BMI of 40.8 Loud snoring Chronic stage IV kidney disease with polycystic kidney disease disorder Hypertension Hyperlipidemia Diabetes mellitus type 2 Peripheral neuropathy maintained on Lyrica Chronic anxiety maintained on Ativan on an as-needed basis Plan Discussed with the patient her sleep pattern and her sleep hygiene measures. She is going to work on those. Continue same treatment monitor renal function proceed with a screening polysomnography to evaluate the presence and severity of sleep apnea and we will come up with the treatment plan accordingly.
== END ==
LOC: 3 N SLEEP 14:45
PROVIDERS: ATTEND Internal Medicine Critical Care Medicine
DX: G47.10 Hypersomnia, unspecified (principal); E66.9 Obesity, unspecified; R06.83 Snoring; E11.22 Type 2 diabetes mellitus with diabetic chronic kidney disease; E11.42 Type 2 diabetes mellitus with diabetic polyneuropathy; E78.5 Hyperlipidemia, unspecified; F41.9 Anxiety disorder, unspecified; I12.9 Hypertensive chronic kidney disease with stage 1 through stage 4 chronic kidney disease, or unspecified chronic kidney disease; N18.4 Chronic kidney disease, stage 4 (severe); Z68.41 Body mass index [BMI] 40.0-44.9, adult; Z79.899 Other long term (current) drug therapy; Z87.891 Personal history of nicotine dependence
CPT/HCPCS: 99211

== ENCOUNTER 2025-04-16 19:31 | Outpatient (CLI) | payer MEDICARE, OTHER ==
--- NOTE | 2025-04-19 18:29 | P.PCN ---
Date of Procedure: 04/16/25 Operative Findings: Polysomnography report History This is a 69-year-old female patient who is coming in for sleep apnea evaluation. The patient thinks she has sleep apnea. She is snoring loud and she is also having excessive daytime sleepiness. During a recent 1 [address] trip, she felt sleepy. On another occasion, she had to pull to the rest area to take a nap. She goes to bed between 10 and 11 PM. She watches television for around half an hour and following that she goes to sleep and she gets out of bed at around 7:30 AM in the morning. She wakes up tired and fatigued and she does not take any naps during the day. She sleeps on her side. No restlessness in lower extremities. No leg kicks. No sleep paralysis. No hallucinations. No cataplexy. She sleeps on her side and she has a dry mouth in the morning. She is aware of the diagnosis of sleep apnea and her has [place] and he utilizes a CPAP unit. Her weight has remained stable over the past 5 years. No excessive utilization of alcoholic beverages or caffeine. No substance abuse. Comorbidities include chronic stage IV kidney disease with polycystic kidney disease, hypertension, diabetes mellitus, gout, hyperlipidemia. She also has chronic anxiety takes Xanax on an as-needed basis. Physical findings Weight is 253 pounds with a body mass index of 40.8 Technical description The patient was studied using a standard complex polysomnography protocol that included recording of the Lead II EKG, Central, occipital and frontal EEG, right and left outer canthus EOG, submental EMG, right and left anterior tibialis EMG, respiratory airflow by thermocouple and or pressure/flow transducer, respiratory efforts by abdominal and thoracic PVDF belts, oxygen saturation by cable oximetry. Position by observation synchronized the PSG. Equipment used: JUNIQE. Sleep architecture The total recording duration was 377 minutes. The total sleep time was 155.5 minutes. The wake after sleep onset time was 184 minutes. Overall sleep efficiency was 41.2%. Latency to sleep onset was 39 minutes. Sleep deyanira ecture was characterized by 12.2% stage I sleep, 76.2% stage II sleep, 0% stage III sleep and a total of 13.2% REM sleep. The total arousal index was 19.3. Results Respiratory analysis showed a total of 117 obstructive events of which 44 obstructive apneas, 0 were mixed apneas and 73 were obstructive hypopneas. The resulting AHI was 37.8 consistent with severe obstructive sleep apnea. The raymond ent had a poor sleep efficiency and the patient was awake for more than 50% of the study and this could have affected our ability to record the disease severity. Nevertheless, based on the available data, her disease is severe worse during REM sleep. Oxygenation analysis The lowest pulse ox achieved during the sleep was 74% during REM sleep and the patient spent approximately 95 minutes in the sleep time below pulse ox of 89% and this accounted for 25% of the overall sleep time. Cardiac analysis Average heart rate was 61 with a minimum heart rate of 59 and a maximum heart rate of 67 Arousal events A total of 50 arousals were counted with an arousal index of 19.3. Respiratory arousal index was 4.6 Periodic limb movements There was a total of 7 periodic limb movement activity with arousals with an index of 2.7 Assessment Severe obstructive sleep apnea with AHI of 37.8, worse during REM sleep Nocturnal oxygen desaturations with a minimum pulse ox of 74% during REM Chronic hypersomnia with an Pauline score of 12 Poor sleep efficiency with a delayed sleep onset. Overall sleep efficiency was calculated to be at 41.2%. Obesity with a BMI of 40.8 Loud snoring Chronic stage IV kidney disease with polycystic kidney disease disorder Hypertension Hyperlipidemia Diabetes mellitus type 2 Peripheral neuropathy maintained on Lyrica Chronic anxiety maintained on Ativan on an as-needed basis Plan The patient has severe obstructive sleep apnea and the patient will be offered CPAP therapy. The patient be asked to come into the sleep center to undergo a CPAP titration. Discussed with the patient her sleep pattern and her sleep hygiene measures. She is going to work on those. Continue same treatment monitor renal function Encourage weight loss Will continue to follow
== END 2025-04-17 05:40 | disposition home or self-care (01) ==
LOC: 3 N SLEEP 19:31
PROVIDERS: ATTEND Internal Medicine Critical Care Medicine
DX: G47.33 Obstructive sleep apnea (adult) (pediatric) (principal); E66.9 Obesity, unspecified; I12.9 Hypertensive chronic kidney disease with stage 1 through stage 4 chronic kidney disease, or unspecified chronic kidney disease; E11.22 Type 2 diabetes mellitus with diabetic chronic kidney disease; N18.4 Chronic kidney disease, stage 4 (severe); E11.42 Type 2 diabetes mellitus with diabetic polyneuropathy; F41.9 Anxiety disorder, unspecified; Z68.41 Body mass index [BMI] 40.0-44.9, adult; Z87.891 Personal history of nicotine dependence
CPT/HCPCS: 95810